=== PATIENT | male | born 1970 | race Caucasian/White ===

== ENCOUNTER 2017-12-28 14:03 | Observation (INO) ==
--- NOTE | 2017-12-28 14:41 | ED ---
HPI General Chief complaint: Respiratory Symptoms Stated complaint: SOB [id number] Time Seen by Provider: 12/28/17 14:25 Source: patient and RN notes reviewed Mode of arrival: ambulatory Limitations: no limitations History of Present Illness HPI narrative: 47-year-old male presents to the emergency department for evaluation of shortness of breath, worse with lying down exertion that is been ongoing for 2 weeks. He also reports a dry cough. He denies any fevers or chills. No congestion. No abdominal pain. Nausea, vomiting, diarrhea. He states he has chronic chest discomfort since previous RI in January, but has no chest pain at this time. He reports history of cardiac stent, hypertension, hyperlipidemia. 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 Moderate severity. Patient denies any recent surgery or travel. No hemoptysis. No leg edema. No history of DVT or PE. He is not on chemotherapy or has cancer. Onset (ago): week(s) (2) Radiation: non-radiation Severity: moderate Relieving factors: none Exacerbating factors: other (Exertion, laying flat) Associated symptoms: Reports cough and shortness of breath; Denies confusion, chest pain, diaphoresis, fever/chills, headaches, loss of appetite, nausea/ vomiting, rash, seizure, syncope and weakness Treatments prior to arrival: Reports none Related Data Home Medications Medication Instructions Recorded Confirmed atorvastatin 20 mg PO DAILY 12/28/17 12/28/17 clonidine HCl 0.1 mg PO BID 12/28/17 12/28/17 clopidogrel 75 mg PO DAILY 12/28/17 12/28/17 lisinopril 5 mg PO DAILY 12/28/17 12/28/17 nitroglycerin 0.4 mg SUBLINGUAL DIRECTED PRN 12/28/17 12/28/17 Allergies Allergy/AdvReac Type Severity Reaction Status Date / Time No Known Allergies Allergy Verified 12/28/17 14:14 Review of Systems ROS: all other systems reviewed are negative [facility] Medical History Medical History High cholesterol (Acute) History of kidney stones (Acute) Hypertension (Acute) Ischemic cardiomyopathy (Acute) Myocardial infarct (Acute) Psoriatic arthritis (Acute) Surgical History Surgical History Stented coronary artery (Acute) Family History Family History Other No pertinent family history Social History Social History Substance History: No History of Abuse Second Hand Smoke Exposure: Yes Smoking Status: Heavy tobacco smoker Tobacco Type: Cigarettes How Often Do You Have a Drink Containing Alcohol: Monthly or less Recent Travel in [facility] within the Last 8 Weeks: No Recent Out of Country Travel within the Last 8 Weeks: No Immunization History Tetanus Immunization: Unsure Exam Narrative Exam Narrative: GENERAL: Well-nourished, well-developed male patient, afebrile. SKIN: Focused skin assessment warm/dry. HEAD: Normocephalic. Atraumatic. EYES: No scleral icterus. No injection or drainage. NECK: Supple, trachea midline. No JVD or lymphadenopathy. CARDIOVASCULAR: Regular rate and rhythm without murmurs, gallops, or rubs. RESPIRATORY: Breath sounds equal bilaterally. No accessory muscle use. Lung sounds are clear to auscultation. GASTROINTESTINAL: Abdomen soft, non-tender, nondistended. MUSCULOSKELETAL: No cyanosis, or edema. BACK: Nontender without obvious deformity. No CVA tenderness. Course Initial Documented Vital Signs Temperature 98.9 F 12/28/17 14:10 Pulse Rate 87 12/28/17 14:10 Respiratory Rate 18 12/28/17 14:10 Blood Pressure 178/113 H 12/28/17 14:10 Pulse Oximetry 98 12/28/17 14:10 Last Documented Vital Signs Temperature 98.5 F 12/29/17 04:00 Pulse Rate 74 12/29/17 04:00 Respiratory Rate 18 12/29/17 04:00 Blood Pressure 135/74 12/29/17 04:00 Pulse Oximetry 95 12/29/17 04:00 Clinical Decision Support PERC Rule Age greater than or equal to 50: No HR greather than or equal to 100: No Sa02 on room air is less than 95%: No Unilateral Leg Swelling: No Hemoptysis: No Recent Surgery or Trauma: No Prior PE or DVT: No Hormone Use: No Medical Decision Making SUSI Attestation SUSI supervised visit: Yes Attestation: I, Dr. Guevara, have reviewed the advance practice practitioner's documentation and am in agreement, met with the patient face to face, made the diagnosis, and the medical decision making was done by me. *My assessment and Findings: [-] Patient is 47-year-old male with history of CHF, presented to emergency room for significant dyspnea at rest. He was diagnosed with CHF exacerbation, I agree with admission on observation for further evaluation and treatment. MDM Narrative Medical decision making narrative: 47-year-old male presents to the emergency department for evaluation of shortness of breath on exertion and lying flat for 2 weeks. IV access obtained. CBC, CMP, BNP, CK, troponin, PTT, PT/INR, chest x -ray ordered and pending. EKG was read by my attending physician, Dr. Harris , SR HR 85, inverted T waves in lead I, aVL, V5, V6. CBC shows no acute abnormality. CMP shows elevated BUN 19. BNP is 1487. CK is 61. Troponin is 0.04. PTT is 25.8. PT/INR is 10.7/1.1. Chest x-ray shows cardiomegaly with mild interstitial prominence, congestive failure would be consideration. I discussed the patient and findings with my attending physician, Dr. Chakraborty. He recommends observation admission. Patient is given Lasix 40 mg IV. Medical Screen Exam Complete: Yes Emergency Medical Condition: Yes Differential Diagnosis Differential Diagnosis: ACS versus CHF versus pneumonia versus COPD versus electrolyte abnormality versus dehydration versus anemia Medical Records Medical records reviewed: Yes I reviewed the patient's medical records. Lab Data Result diagrams: 12/28/17 14:45 12/28/17 14:45 Lab Results 12/28/17 12/28/17 12/28/17 Range/Units 14:45 14:45 14:45 CBC w Diff Auto diff final WBC 11.0 (4.0-11.0) th/mm3 RBC 4.69 (4.50-5.90) mil/mm3 Hgb 14.1 (13.0-17.0) gm/dL Hct 42.9 (39.0-51.0) % MCV 91.5 (80.0-100.0) fL MCH 30.0 (27.0-34.0) pg MCHC 32.8 (32.0-36.0) % RDW 15.1 (11.6-17.2) % Plt Count 321 (150-450) th/mm3 MPV 8.4 (7.0-11.0) fL Neut % (Auto) 69.6 (16.0-70.0) % Lymph % (Auto) 18.4 (9.0-44.0) % Heard % (Auto) 6.4 (0.0-8.0) % Eos % (Auto) 4.5 H (0.0-4.0) % Baso % (Auto) 1.1 (0.0-2.0) % Neut # (Auto) 7.7 (1.8-7.7) th/mm3 Lymph # (Auto) 2.0 (1.0-4.8) th/mm3 Heard # (Auto) 0.7 (0.0-0.9) th/mm3 Eos # (Auto) 0.5 H (0.0-0.4) th/mm3 Baso # (Auto) 0.1 (0.0-0.2) th/mm3 WBC Differential . Differential Comment . PT 10.7 (9.8-11.6) sec INR 1.1 Ratio APTT 25.8 (24.3-30.1) sec Sodium 138 (136-145) meq/L Potassium 4.1 (3.5-5.1) meq/L Chloride 105 (98-107) meq/L Carbon Dioxide 24.4 (21.0-32.0) meq/L Anion Gap 9 (5-15) meq/L BUN 19 H (7-18) mg/dL Creatinine 1.20 (0.60-1.30) mg/dL Estimated GFR 64 L (>89) mL/min Random Glucose 93 (74-106) mg/dL Calcium 8.9 (8.5-10.1) mg/dL Magnesium 1.9 (1.5-2.5) mg/dL Total Bilirubin 1.2 H (0.2-1.0) mg/dL AST 22 (15-37) U/L ALT 40 (12-78) U/L Alkaline Phosphatase 123 H (45-117) U/L Total Creatine Kinase 61 (39-308) U/L Troponin I 0.04 (0.02-0.05) ng/mL B-Natriuretic Peptide (0-100) pg/mL Total Protein 7.3 (6.4-8.2) g/dL Albumin 3.5 (3.4-5.0) g/dL 12/28/17 12/28/17 12/29/17 Range/Units 14:45 20:58 02:30 CBC w Diff WBC (4.0-11.0) th/mm3 RBC (4.50-5.90) mil/mm3 Hgb (13.0-17.0) gm/dL Hct (39.0-51.0) % MCV (80.0-100.0) fL MCH (27.0-34.0) pg MCHC (32.0-36.0) % RDW (11.6-17.2) % Plt Count (150-450) th/mm3 MPV (7.0-11.0) fL Neut % (Auto) (16.0-70.0) % Lymph % (Auto) (9.0-44.0) % Heard % (Auto) (0.0-8.0) % Eos % (Auto) (0.0-4.0) % Baso % (Auto) (0.0-2.0) % Neut # (Auto) (1.8-7.7) th/mm3 Lymph # (Auto) (1.0-4.8) th/mm3 Heard # (Auto) (0.0-0.9) th/mm3 Eos # (Auto) (0.0-0.4) th/mm3 Baso # (Auto) (0.0-0.2) th/mm3 WBC Differential Differential Comment PT (9.8-11.6) sec INR Ratio APTT (24.3-30.1) sec Sodium (136-145) meq/L Potassium (3.5-5.1) meq/L Chloride (98-107) meq/L Carbon Dioxide (21.0-32.0) meq/L Anion Gap (5-15) meq/L BUN (7-18) mg/dL Creatinine (0.60-1.30) mg/dL Estimated GFR (>89) mL/min Random Glucose (74-106) mg/dL Calcium (8.5-10.1) mg/dL Magnesium (1.5-2.5) mg/dL Total Bilirubin (0.2-1.0) mg/dL AST (15-37) U/L ALT (12-78) U/L Alkaline Phosphatase (45-117) U/L Total Creatine Kinase 52 47 (39-308) U/L Troponin I 0.04 0.04 (0.02-0.05) ng/mL B-Natriuretic Peptide 1487 H (0-100) pg/mL Total Protein (6.4-8.2) g/dL Albumin (3.4-5.0) g/dL Imaging Data Radiologist's impression: Chest X-Ray 12/28/17 14:30 CONCLUSION: Cardiomegaly with mild interstitial prominence. Congestive failure would be consideration. Discharge Plan Discharge Disposition Patient Disposition: 30 Still Patient Discharge Details Diagnosis: Acute exacerbation of congestive heart failure Physicians Team ED Provider: Antolin Chakraborty ED Midlevel Provider: Carina Castro Primary Care Provider: Primary Care Malgorzata Urias Attending Provider: Rashmi Diaz Status ED Status: Left Department Discharge Information Discharge Date/Time: 12/28/17 17:51
[2017-12-28 15:07] LABS: Baso # (Auto) 0.1 th/mm3 (0.0-0.2); Baso % (Auto) 1.1 % (0.0-2.0); Eos # (Auto) 0.5 th/mm3 (0.0-0.4); Eos % (Auto) 4.5 % (0.0-4.0); Hematocrit 42.9 % (39.0-51.0); Hemoglobin 14.1 gm/dL (13.0-17.0); Lymph % (Auto) 18.4 % (9.0-44.0); Mean Corpuscular HGB Conc 32.8 % (32.0-36.0); Mean Corpuscular Volume 91.5 fL (80.0-100.0); Mean Platelet Volume 8.4 fL (7.0-11.0); Mono # (Auto) 0.7 th/mm3 (0.0-0.9); Mono % (Auto) 6.4 % (0.0-8.0); Neut # (Auto) 7.7 th/mm3 (1.8-7.7); Neut % (Auto) 69.6 % (16.0-70.0); Platelet Count 321 th/mm3 (150-450); Red Blood Count 4.69 mil/mm3 (4.50-5.90); Red Cell Distribution Width 15.1 % (11.6-17.2)
[2017-12-28 15:08] LABS: Chloride 105 meq/L (98-107); Potassium 4.1 meq/L (3.5-5.1); Sodium 138 meq/L (136-145)
--- NOTE | 2017-12-28 15:09 | XR ---
EXAM DATE: 12/28/2017 3:04 PM EDT AGE/SEX: 47 years / Male INDICATIONS: . Shortness of breath. CLINICAL DATA: This is the patient's initial encounter. Patient reports that signs and symptoms have been present for 3 weeks and indicates a pain score of 0/10. MEDICAL/SURGICAL HISTORY: Hypertension. . Cardiac stent. COMPAR[place]: [facility] [place], 02/26/[place]. . FINDINGS: PA and lateral views of the chest demonstrate the lungs to be symmetrically aerated without evidence of mass, infiltrate or effusion. The heart is enlarged with mild interstitial prominence.. Osseous st ructures are intact. CONCLUSION: Cardiomegaly with mild interstitial prominence. Congestive failure would be consideration. Electronically signed by: Kash Wharton MD 12/28/2017 3:07 PM EDT
[2017-12-28 15:11] LABS: Calcium 8.9 mg/dL (8.5-10.1)
[2017-12-28 15:12] LABS: Albumin 3.5 g/dL (3.4-5.0); Anion Gap 9 meq/L (5-15); Blood Urea Nitrogen 19 mg/dL (7-18); Carbon Dioxide 24.4 meq/L (21.0-32.0); Glucose,Random 93 mg/dL (74-106); Magnesium 1.9 mg/dL (1.5-2.5)
[2017-12-28 15:15] LABS: Alanine Aminotransferase 40 U/L (12-78); Aspartate Aminotransferase 22 U/L (15-37); Glomerular Filtration Rate 64 mL/min (>89)
[2017-12-28 15:16] LABS: Total Protein 7.3 g/dL (6.4-8.2)
[2017-12-28 15:17] LABS: Alkaline Phosphatase 123 U/L (45-117)
[2017-12-28 15:20] LABS: Troponin I 0.04 ng/mL (0.02-0.05)
[2017-12-28 15:23] LABS: Activated Partial Thrombo Time 25.8 sec (24.3-30.1); INR 1.1 Ratio; Prothrombin Time 10.7 sec (9.8-11.6)
[2017-12-28 15:29] LABS: Creatine Kinase 61 U/L (39-308)
--- NOTE | 2017-12-28 17:00 | P.HP ---
History of Present Illness Primary Care Physician: No Primary Care Physician Chief Complaint: Shortness of breath History of Present Illness: 47-year-old male with known history of myocardial infarction, severe ischemic cardiomyopathy with ejection fraction 25-30%, severe coronary artery disease with history of emergent angioplasty and stenting, who presented to hospital because of progressive shortness of breath, dyspnea on exertion. Patient states that he was in normal state of health up until about 2 weeks ago when he started noticing that he was getting winded more often. He cannot walk as far as he could or work as long as he usually does without has to take a rest. He got to the point where he can only work for proxy 1 hour and then he would have to sit down and take a rest. Patient states that he does drink fluids on a regular basis. He is not on any diuretics. He does not know if he is gaining any weight, he does not weigh himself on a regular basis. He actually denies any chest pain, nausea, vomiting, diaphoresis. Patient came to emergency department and had workup performed and chest x-ray does show cardiomegaly with mild interstitial prominence, congestive failure would be a consideration. Patient did have elevated BNP. Patient does have crackles on examination, patient denies any lower extremity edema, denies any orthopnea. Denies any paroxysmal nocturnal dyspnea. - Diagnosis (1) Acute exacerbation of congestive heart failure (2) Dyspnea on exertion Review of Systems All other systems reviewed negative except as stated in HPI Respiratory: Reports shortness of breath with activity PMFSH - History History Provided By: Patient - Medical History Medical History: Medical History (Last Updated 12/28/17 @ 16:54 by SCOTT Corral) High cholesterol History of kidney stones Hypertension Ischemic cardiomyopathy Myocardial infarct Psoriatic arthritis - Surgical History Surgical History: Surgical History (Last Updated 12/28/17 @ 14:26 by Deidre Cruz RN) Stented coronary artery - Family History Family History: Family History (Last Updated 12/28/17 @ 16:55 by SCOTT Corral) Other No pertinent family history - Tobacco History Second Hand Smoke Exposure: No Tobacco Use In Past 30 Days: No Smoking Status: Current every day smoker Tobacco Type: Cigarettes - Alcohol History How Often Do You Have a Drink Containing Alcohol: Monthly or less - Substance Use History Substance History: No History of Abuse - Immunization History Tetanus Immunization: Unsure Medications and Allergies Active Medications: Active Medications Atorvastatin Calcium (Lipitor) 80 mg PO HS MAURI Carvedilol (Coreg) 3.125 mg PO BID [facility] Clonidine HCl (Clonidine (Nicu) 20 Mcg/Ml Liq) 100 mcg PO BID [facility]URI Clopidogrel Bisulfate (Plavix) 75 mg PO DAILY [facility]URI Furosemide (Lasix Inj) 40 mg IV.PUSH BID@0900,1800 MAURI Heparin Sodium (Porcine) (Heparin Inj) 5,000 units SQ Q12H [facility]URI Lisinopril (Prinivil) 10 mg PO DAILY MAURI Nitroglycerin (Nitrostat Sl) 0.4 mg SL Q5M PRN PRN Reason: CHEST PAIN Potassium Chloride (K-Dur) 20 meq PO BID MAURI Sodium Chloride (Ns Flush) 2 ml IV.FLUSH BID MAURI Sodium Chloride (Ns Flush) 2 ml IV.FLUSH UNSCH PRN PRN Reason: FLUSH AFTER USING IV ACCESS Allergies Allergy/AdvReac Type Severity Reaction Status Date / Time No Known Allergies Allergy Verified 12/28/17 14:14 Home Medications Medication Instructions Recorded Confirmed Type atorvastatin 20 mg PO DAILY 12/28/17 12/28/17 History clonidine HCl 0.1 mg PO BID 12/28/17 12/28/17 History clopidogrel 75 mg PO DAILY 12/28/17 12/28/17 History lisinopril 5 mg PO DAILY 12/28/17 12/28/17 History nitroglycerin 0.4 mg SUBLINGUAL DIRECTED PRN 12/28/17 12/28/17 History Exam Vital signs: Vital Signs 12/28/17 14:10 12/28/17 14:30 12/28/17 16:00 Temperature 98.9 F Pulse Rate 87 84 Respiratory Rate 18 20 Blood Pressure 178/113 H 179/109 H Pulse Oximetry 98 97 Intake & Output 12/27/17 12/28/17 12/28/17 18:59 06:59 18:59 Weight 82 kg Narrative: GENERAL: Well-developed, well-nourished, in no acute distress. alert and orientated HEENT: Head is normocephalic without any lesions or masses noted. Facial features are symmetric. Eyes: Pupils equal round reactive to light. Extraocular muscles are intact. Conjunctivae were clear. Oropharyngeal: Pharynx without any erythema edema. Tongue is midline without deviation. Buccal mucosa is moist without any masses or lesions NECK: Supple without any masses. Trachea midline no deviation. No JVD, no bruits are appreciated CARDIAC: Regular rhythm, regular rate. S1/S2 are heard. No murmurs gallops or rubs. LUNGS: Patient with crackles noted in bilateral bases. No wheeze, rhonchi. No use of accessory muscles on inspiration or expiration. ABDOMEN: Soft, nontender. Nondistended. Bowel sounds heard in all 4 quadrants. No organomegaly or masses. Negative rebound, negative guarding EXTREMITIES: No edema, pulses are equal bilaterally. No cyanosis or clubbing NEUROLOGY: Mood and affect appear appropriate. Cranial nerves II through XII grossly intact. Muscle strength 5/5 in upper and lower extremities bilaterally. Deep tendon reflexes are 2+ in upper and lower extremities bilaterally. Results - Labs CBC & Chem 7: 12/28/17 14:45 12/28/17 14:45 Labs: Laboratory Results - last 24 hr 12/28/17 12/28/17 12/28/17 14:45 14:45 14:45 CBC w Diff Auto diff final WBC 11.0 RBC 4.69 Hgb 14.1 Hct 42.9 MCV 91.5 MCH 30.0 MCHC 32.8 RDW 15.1 Plt Count 321 MPV 8.4 Neut % (Auto) 69.6 Lymph % (Auto) 18.4 Bowie % (Auto) 6.4 Eos % (Auto) 4.5 H Baso % (Auto) 1.1 Neut # (Auto) 7.7 Lymph # (Auto) 2.0 Bowie # (Auto) 0.7 Eos # (Auto) 0.5 H Baso # (Auto) 0.1 WBC Differential . Differential Comment . PT 10.7 INR 1.1 APTT 25.8 Sodium 138 Potassium 4.1 Chloride 105 Carbon Dioxide 24.4 Anion Gap 9 BUN 19 H Creatinine 1.20 Estimated GFR 64 L Random Glucose 93 Calcium 8.9 Magnesium 1.9 Total Bilirubin 1.2 H AST 22 ALT 40 Alkaline Phosphatase 123 H Total Creatine Kinase 61 Troponin I 0.04 B-Natriuretic Peptide Total Protein 7.3 Albumin 3.5 12/28/17 14:45 CBC w Diff WBC RBC Hgb Hct MCV MCH MCHC RDW Plt Count MPV Neut % (Auto) Lymph % (Auto) Bowie % (Auto) Eos % (Auto) Baso % (Auto) Neut # (Auto) Lymph # (Auto) Bowie # (Auto) Eos # (Auto) Baso # (Auto) WBC Differential Differential Comment PT INR APTT Sodium Potassium Chloride Carbon Dioxide Anion Gap BUN Creatinine Estimated GFR Random Glucose Calcium Magnesium Total Bilirubin AST ALT Alkaline Phosphatase Total Creatine Kinase Troponin I B-Natriuretic Peptide 1487 H Total Protein Albumin - Imaging Impressions Chest X-Ray 12/28/17 14:30 CONCLUSION: Cardiomegaly with mild interstitial prominence. Congestive failure would be consideration. Caprini VTE Risk Assessment Caprini VTE Risk Assessment: Moderate/High Risk (score >= 2) Caprini Risk Assessment Model: Point Value = 1 Point Value = 2 Point Value = 3 Point Value = 5 Age 41-60 Minor surgery BMI > 25 kg/m2 Swollen legs Varicose veins or History of unexplained or recurrent spontaneous Oral contraceptives or hormone replacement Sepsis (< 1 month) Serious lung disease, including pneumonia (< 1 month) Abnormal pulmonary function Acute myocardial infarction Congestive heart failure (< 1 month) History of inflammatory bowel disease Medical patient at bed rest Age 61-74 Arthroscopic surgery Major open surgery (> 45 min) Laparoscopic surgery (> 45 min) Malignancy Confined to bed (> 72 hours) Immobilizing plaster cast Central venous access Age >= 75 History of VTE Family history of VTE Factor V Leiden Prothrombin [id number] Lupus anticoagulant Anticardiolipin antibodies Elevated serum homocysteine Heparin-induced thrombocytopenia Other congenital or acquired thrombophilia Stroke (< 1 month) Elective arthroplasty Hip, pelvis, or leg fracture Acute spinal cord injury (< 1 month) Prophylaxis Regimen: Total Risk Factor Score Risk Level Prophylaxis Regimen 0-1 Low Early ambulation 2 Moderate Order ONE of the following: *Sequential Compression Device (SCD) *Heparin 5000 units SQ BID 3-4 Higher Order ONE of the following medications: *Heparin 5000 units SQ TID *Enoxaparin/Lovenox 40 mg SQ daily (WT < 150 kg, CrCl > 30 mL/min) *Enoxaparin/Lovenox 30 mg SQ daily (WT < 150 kg, CrCl > 10-29 mL/min) *Enoxaparin/Lovenox 30 mg SQ BID (WT < 150 kg, CrCl > 30 mL/min) AND/OR *Sequential Compression Device (SCD) 5 or more Highest Order ONE of the following medications: *Heparin 5000 units SQ TID (Preferred with Epidurals) *Enoxaparin/Lovenox 40 mg SQ daily (WT < 150 kg, CrCl > 30 mL/min) *Enoxaparin/Lovenox 30 mg SQ daily (WT < 150 kg, CrCl > 10-29 mL/min) *Enoxaparin/Lovenox 30 mg SQ BID (WT < 150 kg, CrCl > 30 mL/min) AND *Sequential Compression Device (SCD) Assessment and Plan - Assessment (1) Acute exacerbation of congestive heart failure Code(s): I50.9 - Heart failure, unspecified Status: Acute (2) Dyspnea on exertion Code(s): R06.09 - Other forms of dyspnea Status: Acute - Plan Acute systolic congestive heart failure -Chest x-ray does indicate interstitial findings indicating congestive heart failure, elevated BNP -We will start Lasix 40 mg IV twice daily with potassium 20 mEq twice daily -We will add beta-yaz -Continue lisinopril -Continue to trend cardiac enzymes to rule out any acute coronary event -Obtain echocardiogram Severe ischemic cardiomyopathy, hypertension, hyper lipidemia, coronary artery disease -Home medications will be continued DVT prevention -Subcutaneous heparin Discussed Condition With: Dr Diaz, ER physician, nursing staff, patient (1) Acute exacerbation of congestive heart failure Qualifiers: Heart failure type: unspecified Qualified Code(s): I50.9 - Heart failure, unspecified
[2017-12-28] MEDS: Heparin - SQ 10,000 UNITS/ML Vial SQ SCH (21:09)
[2017-12-28 21:23] LABS: Troponin I 0.04 ng/mL (0.02-0.05)
[2017-12-29 02:58] LABS: Troponin I 0.04 ng/mL (0.02-0.05)
--- NOTE | 2017-12-29 08:25 | P.PNIM ---
Subjective Interval history: Follow-up CHF exacerbation. Patient seen and examined, sitting up in bed comfortably no apparent distress. Does state he had one bout of shortness of breath with ambulation today he has been up since then and he denies any further shortness of breath. He denies any chest pain. Has been diuresing well. Awaiting echocardiogram today. Anticipate discharge later this afternoon once echocardiogram report is back. Vital signs stable. Afebrile. Physical Exam Vital signs: Vital Signs 12/28/17 14:10 12/28/17 14:30 12/28/17 16:00 Temperature 98.9 F Pulse Rate 87 84 Respiratory Rate 18 20 Blood Pressure 178/113 H 179/109 H Pulse Oximetry 98 97 12/28/17 17:51 12/28/17 20:00 12/29/17 00:00 Temperature 97.8 F 96.5 F L Pulse Rate 78 76 71 Respiratory Rate 18 18 Blood Pressure 147/75 H 150/95 H 131/63 Pulse Oximetry 97 95 96 12/29/17 04:00 Temperature 98.5 F Pulse Rate 74 Respiratory Rate 18 Blood Pressure 135/74 Pulse Oximetry 95 Intake & Output 12/28/17 12/29/17 12/29/17 18:59 06:59 18:59 Intake Total 120 / 120 100 / 100 Output Total 1050 / 1050 600 / 600 Balance -930 / -930 -500 / -500 Weight 82 kg 81.5 kg Intake: Oral 120 / 120 100 / 100 Output: Urine 1050 / 1050 600 / 600 Narrative: GENERAL: Well-developed, well-nourished, in no acute distress. alert and orientated HEENT: Head is normocephalic without any lesions or masses noted. Facial features are symmetric. Eyes: Pupils equal round reactive to light. Extraocular muscles are intact. Conjunctivae were clear. Oropharyngeal: Pharynx without any erythema edema. Tongue is midline without deviation. Buccal mucosa is moist without any masses or lesions NECK: Supple without any masses. Trachea midline no deviation. No JVD, no bruits are appreciated CARDIAC: Regular rhythm, regular rate. S1/S2 are heard. No murmurs gallops or rubs. LUNGS: Patient with crackles noted in bilateral bases. No wheeze, rhonchi. No use of accessory muscles on inspiration or expiration. ABDOMEN: Soft, nontender. Nondistended. Bowel sounds heard in all 4 quadrants. No organomegaly or masses. Negative rebound, negative guarding EXTREMITIES: No edema, pulses are equal bilaterally. No cyanosis or clubbing NEUROLOGY: Mood and affect appear appropriate. Cranial nerves II through XII grossly intact. Muscle strength 5/5 in upper and lower extremities bilaterally. Deep tendon reflexes are 2+ in upper and lower extremities bilaterally. Results - Labs CBC & Chem 7: 12/28/17 14:45 12/28/17 14:45 Laboratory Results - last 24 hr 12/28/17 12/28/17 12/28/17 14:45 14:45 14:45 CBC w Diff Auto diff final WBC 11.0 RBC 4.69 Hgb 14.1 Hct 42.9 MCV 91.5 MCH 30.0 MCHC 32.8 RDW 15.1 Plt Count 321 MPV 8.4 Neut % (Auto) 69.6 Lymph % (Auto) 18.4 Powell % (Auto) 6.4 Eos % (Auto) 4.5 H Baso % (Auto) 1.1 Neut # (Auto) 7.7 Lymph # (Auto) 2.0 [place] # (Auto) 0.7 Eos # (Auto) 0.5 H Baso # (Auto) 0.1 WBC Differential . Differential Comment . PT 10.7 INR 1.1 APTT 25.8 Sodium 138 Potassium 4.1 Chloride 105 Carbon Dioxide 24.4 Anion Gap 9 BUN 19 H Creatinine 1.20 Estimated GFR 64 L Random Glucose 93 Calcium 8.9 Magnesium 1.9 Total Bilirubin 1.2 H AST 22 ALT 40 Alkaline Phosphatase 123 H Total Creatine Kinase 61 Troponin I 0.04 B-Natriuretic Peptide Total Protein 7.3 Albumin 3.5 12/28/17 12/28/17 12/29/17 14:45 20:58 02:30 CBC w Diff WBC RBC Hgb Hct MCV MCH MCHC RDW Plt Count MPV Neut % (Auto) Lymph % (Auto) Powell % (Auto) Eos % (Auto) Baso % (Auto) Neut # (Auto) Lymph # (Auto) Powell # (Auto) Eos # (Auto) Baso # (Auto) WBC Differential Differential Comment PT INR APTT Sodium Potassium Chloride Carbon Dioxide Anion Gap BUN Creatinine Estimated GFR Random Glucose Calcium Magnesium Total Bilirubin AST ALT Alkaline Phosphatase Total Creatine Kinase 52 47 Troponin I 0.04 0.04 B-Natriuretic Peptide 1487 H Total Protein Albumin - Imaging Impressions Chest X-Ray 12/28/17 14:30 CONCLUSION: Cardiomegaly with mild interstitial prominence. Congestive failure would be consideration. Assessment and Plan - Assessment (1) Acute exacerbation of congestive heart failure Code(s): I50.9 - Heart failure, unspecified Status: Acute (2) Dyspnea on exertion Code(s): R06.09 - Other forms of dyspnea Status: Acute - Plan This a 47-year-old male patient with: Acute systolic congestive heart failure -Chest x-ray does indicate interstitial findings indicating congestive heart failure, elevated BNP -Continue Lasix 40 mg IV twice daily with potassium 20 mEq twice daily -Continue beta-yaz -Continue lisinopril -ACS ruled out with cardiac cardiac enzymes. -Obtain echocardiogram, still pending. -Diuresing well, negative fluid balance noted. Severe ischemic cardiomyopathy, hypertension, hyper lipidemia, coronary artery disease -Home medications will be continued DVT prevention -Subcutaneous heparin Discharge Planning: Awaiting ECHO today. Will dc when report available. (1) Acute exacerbation of congestive heart failure Qualifiers: Heart failure type: unspecified Qualified Code(s): I50.9 - Heart failure, unspecified
[2017-12-29] MEDS ORDERED: Lisinopril 10 MG Tablet PO SCH (09:00)
[2017-12-29] MEDS: Heparin - SQ 10,000 UNITS/ML Vial SQ SCH ×2 (09:41→09:50)
--- NOTE | 2017-12-29 16:25 | ECG ---
Date Performed: 12/28/2017 Time Performed: 14:34:59 PTAGE: 47 years EKG: Sinus rhythm POSSIBLE LEFT ATRIAL ENLARGEMENT MARKED LEFT AXIS DEVIATION ANTEROSEPTAL MYOCARDIAL INFARCTION, age indeterminate PREVIOUS TRACING : 02/24/2017 08.40 DOCTOR: Rian Cervantes Interpretating Date/Time 12/29/2017 16:25:16
--- NOTE | 2017-12-29 16:26 | ECG ---
Date Performed: 12/28/2017 Time Performed: 20:48:29 PTAGE: 47 years EKG: Sinus rhythm LEFT ATRIAL ENLARGEMENT MARKED LEFT AXIS DEVIATION ANTERIOR MYOCARDIAL INFARCTION, age indetrminate PREVIOUS TRACING : 12/28/2017 14.40 DOCTOR: Rian Cervantes Interpretating Date/Time 12/29/2017 16:26:17
--- NOTE | 2017-12-29 16:26 | ECG ---
Date Performed: 12/28/2017 Time Performed: 14:40:14 PTAGE: 47 years EKG: Sinus rhythm LEFT ATRIAL ENLARGEMENT MARKED LEFT AXIS DEVIATION ANTEROSEPTAL MYOCARDIAL INFARCTION, age indetermi singh MODERATE T-WAVE ABNORMALITY, CONSIDER LATERAL ISCHEMIA ABNORMAL ECG INTERPRETATION BASED ON A DE FAULT AGE OF 40 YEARS PREVIOUS TRACING :12/28/2017 @14.34.59 DOCTOR: Rian Cervantes Interpretating Date/Time 12/29/2017 16:26:02
--- NOTE | 2017-12-29 16:28 | ECG ---
Date Performed: 12/29/2017 Time Performed: 02:43:25 PTAGE: 47 years EKG: Sinus rhythm LEFT ATRIAL ENLARGEMENT ANTEROSEPTAL MYOCARDIAL INFARCTION, age indeterminate PREVIOUS TRACING : 12/28/2017 20.48 DOCTOR: Rian Cervantes Interpretating Date/Time 12/29/2017 16:26:46
--- NOTE | 2017-12-29 18:30 | ECHRPT ---
Indication: Cardiomyopathy CONCLUSIONS The left ventricular systolic function is severely reduced with an estimated ejection fraction in th e range of 25-30%. Mild concentric left ventricular hypertrophy. Apical akinesis. Trace mitral valve regurgitation. BP: / HR: Rhythm: MEASUREMENTS (Male / Female) Normal Values Technical Quality:Fair 2D ECHO LV Diastolic Diameter PLAX 5.2 cm 4.2 - 5.9 / 3.9 - 5.3 cm LV Systolic Diameter PLAX 4.9 cm IVS Diastolic Thickness 1.3 cm 0.6 - 1.0 / 0.6 - 0.9 cm LVPW Diastolic Thickness 1.2 cm 0.6 - 1.0 / 0.6 - 0.9 cm LV Relative Wall Thickness 0.5 RV Internal Dim ED PLAX 3.7 cm LVOT Diameter 2.3 cm Aortic Root Diameter 3.0 cm LA Systolic Diameter LX 3.8 cm 3.0 - 4.0 / 2.7 - 3.8 cm DOPPLER AV Peak Velocity 122.0 cm/s AV Peak Gradient 6.0 mmHg LVOT Peak Velocity 107.0 cm/s LVOT Peak Gradient 4.6 mmHg AV Area Cont Eq pk 3.6 cm Mitral E Point Velocity 72.1 cm/s Mitral A Point Velocity 67.6 cm/s Mitral E to A Ratio 1.1 LV E' Lateral Velocity 5.9 cm/s Mitral E to LV E' Lateral Ratio 12.3 LV E' Septal Velocity 4.8 cm/s Mitral E to LV E' Septal Ratio 15.1 PV Peak Velocity 93.7 cm/s PV Peak Gradient 3.5 mmHg FINDINGS LEFT VENTRICLE Normal left ventricular size. Mild concentric left ventricular hypertrophy. The left ventricular systolic function is severely reduced with an estimated ejection fraction in th e range of 25-30%. There is global left ventricular dysfunction. Apical akinesis RIGHT VENTRICLE Grossly normal LEFT ATRIUM The left atrial size is normal. RIGHT ATRIUM The right atrial size is normal. ATRIAL SEPTUM Normal atrial septal thickness without atrial level shunting by limited color doppler interrogation. AORTA The aortic root and proximal ascending aorta are normal in size on limited imaging. MITRAL VALVE Structurally normal mitral valve. Trace mitral valve regurgitation. No mitral valve stenosis. AORTIC VALVE Trileaflet aortic valve. No aortic valve stenosis or regurgitation. TRICUSPID VALVE Structurally normal tricuspid valve. No tricuspid valve stenosis or regurgitation. PULMONARY VALVE The pulmonary valve is not well visualized. VESSELS The inferior vena cava is normal in size. PERICARDIUM No pericardial effusion. Vincent G. Lazar DO (Electronically Signed) Final Date:29 December 2017 18:29
== END 2017-12-29 19:41 | disposition home or self-care (01) ==
LOC: PHEDA 14:03 → PHEFT 14:03 → MERGE 16:21 → PH3 17:44
PROVIDERS: ADMIT Family Medicine; ATTEND Family Medicine

== ENCOUNTER 2018-04-18 17:59 | Inpatient (IN) ==
[2018-04-18 18:46] LABS: Baso # (Auto) 0.1 th/mm3 (0.0-0.2); Baso % (Auto) 1.1 % (0.0-2.0); Eos # (Auto) 0.3 th/mm3 (0.0-0.4); Eos % (Auto) 2.7 % (0.0-4.0); Hematocrit 43.6 % (39.0-51.0); Hemoglobin 14.1 gm/dL (13.0-17.0); Lymph # (Auto) 2.4 th/mm3 (1.0-4.8); Lymph % (Auto) 20.2 % (9.0-44.0); Mean Corpuscular HGB Conc 32.3 % (32.0-36.0); Mean Corpuscular Hemoglobin 28.9 pg (27.0-34.0); Mean Corpuscular Volume 89.2 fL (80.0-100.0); Mean Platelet Volume 8.8 fL (7.0-11.0); Mono # (Auto) 0.6 th/mm3 (0.0-0.9); Mono % (Auto) 5.5 % (0.0-8.0); Neut # (Auto) 8.3 th/mm3 (1.8-7.7); Neut % (Auto) 70.5 % (16.0-70.0); Platelet Count 310 th/mm3 (150-450); Red Blood Count 4.89 mil/mm3 (4.50-5.90); Red Cell Distribution Width 15.1 % (11.6-17.2); White Blood Count 11.7 th/mm3 (4.0-11.0)
[2018-04-18 18:53] LABS: Chloride 107 meq/L (98-107); Potassium 3.7 meq/L (3.5-5.1); Sodium 139 meq/L (136-145)
[2018-04-18 18:56] LABS: Anion Gap 9 meq/L (5-15); Blood Urea Nitrogen 14 mg/dL (7-18); Carbon Dioxide 23.5 meq/L (21.0-32.0); Glucose,Random 109 mg/dL (74-106)
[2018-04-18 18:59] LABS: Glomerular Filtration Rate 64 mL/min (>89)
[2018-04-18 19:03] LABS: Creatine Kinase 106 U/L (39-308)
[2018-04-18 19:04] LABS: Troponin I 0.12 ng/mL (0.02-0.05)
--- NOTE | 2018-04-18 19:15 | ED ---
HPI General Chief Complaint: Chest Pain Stated Complaint: chest pain Time Seen by Provider: 04/18/18 18:46 Source: patient Mode of arrival: ambulatory Limitations: no limitations History of Present Illness HPI narrative: 48-year-old male presents to the emergency department complaint of retrosternal chest pain. Patient also complains of shortness of breath nausea and diaphoresis patient has history of previous PA and had cardiac catheterization as recently as January 2017 at which time he had angioplasty and stent placement and EF 20%. Patient states that he does have high blood pressure high cholesterol and continues to smoke cigarettes. Patient currently has no primary care provider. Patient was previously followed by Dr. Harding but has not seen her for at least a year or perhaps longer. Patient was admitted in November 2017 for an episode of congestive heart failure at that time he had an echocardiogram that showed an EF of 20-25%. Patient states symptoms began around 4:30 PM this evening to 324 mg of aspirin. Patient states pain was initially 7/10 in intensity is currently 5/10 in intensity. Denies history of diabetes or family history of premature onset heart disease. Patient denies any orthopnea or PND has had some exertional dyspnea. Patient also reports that he has had a congested cough over the past 2 weeks has had occasional yellow phlegm production but no fevers. MD complaint: Reports chest pain STEMI Alert: No Onset (ago): hour(s) (2) Time: 16:29 Duration: constant Onset: during rest Pain location: Reports substernal Severity: severe Quality: Reports tightness, aching and heaviness Pain radiation: Reports back and neck Relieving factors: nothing Exacerbating factors: exertion Context: Denies recent illness, recent surgery, recent immobilization, recent travel, trauma/injury, new medications and history of DVT/PE Associated symptoms: Reports nausea, diaphoresis, dyspnea and cough; Denies vomiting, sense of impending doom, syncope, palpitations, fever and leg swelling Treatments prior to arrival chest pain: Reports aspirin (324 mg) Related Data Home Medications Medication Instructions Recorded Confirmed atorvastatin 20 mg PO DAILY 12/28/17 04/18/18 clonidine HCl 0.1 mg PO BID 12/28/17 04/18/18 clopidogrel 75 mg PO DAILY 12/28/17 04/18/18 nitroglycerin 0.4 mg SUBLINGUAL DIRECTED PRN 12/28/17 04/18/18 furosemide [Lasix] mg PO DAILY 04/18/18 potassium chloride meq PO DAILY 04/18/18 Allergies Allergy/AdvReac Type Severity Reaction Status Date / Time No Known Allergies Allergy Verified 04/18/18 18:13 Review of Systems ROS: all other systems reviewed are negative [facility] Medical History Medical History High cholesterol (Acute) History of kidney stones (Acute) Hypertension (Acute) Ischemic cardiomyopathy (Acute) Myocardial infarct (Acute) Psoriatic arthritis (Acute) Surgical History Surgical History Stented coronary artery (Acute) Family History Family History Other No pertinent family history Social History Social History Substance History: No History of Abuse Second Hand Smoke Exposure: Yes Smoking Status: Current every day smoker Tobacco Type: Cigarettes How Often Do You Have a Drink Containing Alcohol: 2 to 4 times a month Recent Travel in [facility] within the Last 8 Weeks: No Recent Out of Country Travel within the Last 8 Weeks: No Immunization History Tetanus Immunization: Unsure Exam Narrative Exam Narrative: GENERAL: Well-nourished, well-developed patient. Resting supine in no acute distress no respiratory distress; GCS 15 SKIN: Focused skin assessment warm/dry. HEAD: Normocephalic. EYES: No scleral icterus. No injection or drainage. NECK: Supple, trachea midline. No JVD or lymphadenopathy. CARDIOVASCULAR: Increased regular rate and rhythm without murmurs, gallops, or rubs. RESPIRATORY: Breath sounds equal bilaterally. No accessory muscle use. Clear to auscultation bilaterally GASTROINTESTINAL: Abdomen soft, non-tender, nondistended. MUSCULOSKELETAL: No cyanosis, or edema. Bilateral radial dorsalis pedis pulses 2+ to palpation bilaterally BACK: Nontender without obvious deformity. No CVA tenderness. Course Initial Documented Vital Signs Pulse Rate 100 H 04/18/18 18:00 Pulse Oximetry 98 04/18/18 18:00 Last Documented Vital Signs Temperature 97.7 F 04/19/18 08:00 Pulse Rate 76 04/19/18 09:56 Respiratory Rate 17 04/19/18 08:00 Blood Pressure 143/92 H 04/19/18 08:00 Pulse Oximetry 97 04/19/18 08:00 Critical Care Time Critical Care Time: Yes Total Critical Care Time: 35 Attestation: Aggregate critical care time was 35 minutes. Time to perform other separately billable procedures was not included in the critical care time. My time did not include minutes spent treating any other patients simultaneously or on activities that did not directly contribute to the patient's treatment. The services I provided to this patient were to treat and/or prevent clinically significant deterioration that could result in: Myocardial infarction, arrhythmia, cardiogenic shock, I provided critical care services requiring my management, as noted below: Chart data review, documentation time, medication orders and management, vital sign assessments/reviewing monitor data, ordering and reviewing lab tests, ordering and interpreting/reviewing x-rays and diagnostic studies, care of the patient and discussion of the patient with the admitting physicians. Medical Decision Making MDM Narrative Medical decision making narrative: 48-year-old male with known history of previous PA and STEMI PA 01/2018 underwent cardiac catheterization by Dr. Stover which showed severe three-vessel disease and severe LAD disease and underwent stenting and angioplasty. Patient placed on network designer IV access obtained specimens collected and sent for resulting EKG shows sinus rhythm left atrial enlargement LVH no acute ST segment elevation or injury pattern mild ST segment flattening laterally Patient is already taken aspirin prior to arrival to the emergency department given some nitroglycerin At 7:14 PM troponin I is elevated at 0.12 coagulation studies pending patient will be placed on heparin and will be treated for acute coronary syndrome anticipate non-STEMI and IV nitroglycerin @ 8:19 cp 05/[address] Stoddard will accept for admission to [facility]; discussed with cardiology, Dr Cervantes Patient is aware of plan and is agreeable to admission and transfer to [facility] Medical Screen Exam Complete: Yes Emergency Medical Condition: Yes Differential Diagnosis Differential Diagnosis: Chest pain, atypical chest pain, ACS, PA, CHF, PE, aortic dissection Medical Records Medical records reviewed: Yes I reviewed the patient's medical records. 02/24/17 cardiac catheterization performed by Dr. Stover moderate to severe three -vessel coronary artery disease including total occlusions of the left anterior descending and right coronary arteries; right dominant system; status post emergency angioplasty and stent of the proximal LAD in the infarct-related vessel; severely reduced LV systolic function with estimated ejection fraction of 20%. Lab Data Lab results reviewed: Yes I reviewed the patient's lab results. Result diagrams: 04/19/18 04:18 04/19/18 04:18 Lab Results 04/18/18 04/18/18 04/18/18 Range/Units 18:20 18:20 18:20 CBC w Diff Auto diff final WBC 11.7 H (4.0-11.0) th/mm3 RBC 4.89 (4.50-5.90) mil/mm3 Hgb 14.1 (13.0-17.0) gm/dL Hct 43.6 (39.0-51.0) % MCV 89.2 (80.0-100.0) fL MCH 28.9 (27.0-34.0) pg MCHC 32.3 (32.0-36.0) % RDW 15.1 (11.6-17.2) % Plt Count 310 (150-450) th/mm3 MPV 8.8 (7.0-11.0) fL Neut % (Auto) 70.5 H (16.0-70.0) % Lymph % (Auto) 20.2 (9.0-44.0) % [place] % (Auto) 5.5 (0.0-8.0) % Eos % (Auto) 2.7 (0.0-4.0) % Baso % (Auto) 1.1 (0.0-2.0) % Neut # (Auto) 8.3 H (1.8-7.7) th/mm3 Lymph # (Auto) 2.4 (1.0-4.8) th/mm3 [place] # (Auto) 0.6 (0.0-0.9) th/mm3 Eos # (Auto) 0.3 (0.0-0.4) th/mm3 Baso # (Auto) 0.1 (0.0-0.2) th/mm3 WBC Differential . Differential Comment . PT 10.7 (9.8-11.6) sec INR 1.1 Ratio APTT 26.6 (23.4-31.7) sec Sodium 139 (136-145) meq/L Potassium 3.7 (3.5-5.1) meq/L Chloride 107 (98-107) meq/L Carbon Dioxide 23.5 (21.0-32.0) meq/L Anion Gap 9 (5-15) meq/L BUN 14 (7-18) mg/dL Creatinine 1.20 (0.60-1.30) mg/dL Estimated GFR 64 L (>89) mL/min Random Glucose 109 H (74-106) mg/dL Calcium 9.0 (8.5-10.1) mg/dL Magnesium (1.5-2.5) mg/dL Total Bilirubin (0.2-1.0) mg/dL AST (15-37) U/L ALT (12-78) U/L Alkaline Phosphatase (45-117) U/L Total Creatine Kinase 106 (39-308) U/L CK-MB (CK-2) 3.0 (0.5-3.6) ng/mL Troponin I 0.12 H (0.02-0.05) ng/mL B-Natriuretic Peptide (0-100) pg/mL Total Protein (6.4-8.2) g/dL Albumin (3.4-5.0) g/dL Triglycerides (42-150) mg/dL Cholesterol (120-200) mg/dL LDL Cholesterol, Calc (0-99) mg/dL HDL Cholesterol (40.0-60.0) mg/dL Cholesterol/HDL Ratio Ratio 04/18/18 04/19/18 04/19/18 Range/Units 18:20 00:47 00:47 CBC w Diff WBC (4.0-11.0) th/mm3 RBC (4.50-5.90) mil/mm3 Hgb (13.0-17.0) gm/dL Hct (39.0-51.0) % MCV (80.0-100.0) fL MCH (27.0-34.0) pg MCHC (32.0-36.0) % RDW (11.6-17.2) % Plt Count (150-450) th/mm3 MPV (7.0-11.0) fL Neut % (Auto) (16.0-70.0) % Lymph % (Auto) (9.0-44.0) % [place] % (Auto) (0.0-8.0) % Eos % (Auto) (0.0-4.0) % Baso % (Auto) (0.0-2.0) % Neut # (Auto) (1.8-7.7) th/mm3 Lymph # (Auto) (1.0-4.8) th/mm3 [place] # (Auto) (0.0-0.9) th/mm3 Eos # (Auto) (0.0-0.4) th/mm3 Baso # (Auto) (0.0-0.2) th/mm3 WBC Differential Differential Comment PT (9.8-11.6) sec INR Ratio APTT 39.3 H D (23.4-31.7) sec Sodium (136-145) meq/L Potassium (3.5-5.1) meq/L Chloride (98-107) meq/L Carbon Dioxide (21.0-32.0) meq/L Anion Gap (5-15) meq/L BUN (7-18) mg/dL Creatinine (0.60-1.30) mg/dL Estimated GFR (>89) mL/min Random Glucose (74-106) mg/dL Calcium (8.5-10.1) mg/dL Magnesium (1.5-2.5) mg/dL Total Bilirubin (0.2-1.0) mg/dL AST (15-37) U/L ALT (12-78) U/L Alkaline Phosphatase (45-117) U/L Total Creatine Kinase (39-308) U/L CK-MB (CK-2) (0.5-3.6) ng/mL Troponin I 0.11 H (0.02-0.05) ng/mL B-Natriuretic Peptide 1997 H (0-100) pg/mL Total Protein (6.4-8.2) g/dL Albumin (3.4-5.0) g/dL Triglycerides (42-150) mg/dL Cholesterol (120-200) mg/dL LDL Cholesterol, Calc (0-99) mg/dL HDL Cholesterol (40.0-60.0) mg/dL Cholesterol/HDL Ratio Ratio 04/19/18 04/19/18 04/19/18 Range/Units 04:18 04:18 04:18 CBC w Diff WBC 9.7 (4.0-11.0) th/mm3 RBC 4.32 L (4.50-5.90) mil/mm3 Hgb 12.7 L (13.0-17.0) gm/dL Hct 38.9 L (39.0-51.0) % MCV 90.1 (80.0-100.0) fL MCH 29.4 (27.0-34.0) pg MCHC 32.6 (32.0-36.0) % RDW 15.6 (11.6-17.2) % Plt Count 233 (150-450) th/mm3 MPV 8.4 (7.0-11.0) fL Neut % (Auto) 52.4 (16.0-70.0) % Lymph % (Auto) 34.7 (9.0-44.0) % [place] % (Auto) 6.7 (0.0-8.0) % Eos % (Auto) 5.2 H (0.0-4.0) % Baso % (Auto) 1.0 (0.0-2.0) % Neut # (Auto) 5.1 (1.8-7.7) th/mm3 Lymph # (Auto) 3.4 (1.0-4.8) th/mm3 [place] # (Auto) 0.7 (0.0-0.9) th/mm3 Eos # (Auto) 0.5 H (0.0-0.4) th/mm3 Baso # (Auto) 0.1 (0.0-0.2) th/mm3 WBC Differential . Differential Comment Auto diff final PT (9.8-11.6) sec INR Ratio APTT (23.4-31.7) sec Sodium 143 (136-145) meq/L Potassium 3.0 L (3.5-5.1) meq/L Chloride 108 H (98-107) meq/L Carbon Dioxide 28.9 (21.0-32.0) meq/L Anion Gap 6 (5-15) meq/L BUN 19 H (7-18) mg/dL Creatinine 1.12 (0.60-1.30) mg/dL Estimated GFR 69 L (>89) mL/min Random Glucose 101 (74-106) mg/dL Calcium 7.9 L D (8.5-10.1) mg/dL Magnesium 1.9 (1.5-2.5) mg/dL Total Bilirubin 1.2 H (0.2-1.0) mg/dL AST 17 (15-37) U/L ALT 22 (12-78) U/L Alkaline Phosphatase 86 (45-117) U/L Total Creatine Kinase (39-308) U/L CK-MB (CK-2) (0.5-3.6) ng/mL Troponin I 0.11 H (0.02-0.05) ng/mL B-Natriuretic Peptide (0-100) pg/mL Total Protein 5.9 L (6.4-8.2) g/dL Albumin 3.0 L (3.4-5.0) g/dL Triglycerides 131 (42-150) mg/dL Cholesterol 95 L (120-200) mg/dL LDL Cholesterol, Calc 31 (0-99) mg/dL HDL Cholesterol 38.1 L (40.0-60.0) mg/dL Cholesterol/HDL Ratio 2.49 Ratio Imaging Data Radiologist's impression: Chest X-Ray 04/18/18 18:37 CONCLUSION: Cardiomegaly with minimal interstitial edema pattern. No consolidation or significant effusion. ECG Data EKG Prior to Arrival: No Attestation: I personally reviewed and interpreted this ECG as follows: (EKG normal sinus rhythm rate 96 with atrial enlargement left axis deviation nonspecific T wave changes.) Prior ECG tracings: available for review Discharge Plan Discharge Disposition Patient Disposition: ED Admit(ED Internal Use Only) Discharge Order Discharge Orders: ED Use Only Admit Order (Routine); Ordered 04/18/18 Ordered By: Melissa Rios Discharge Details Diagnosis: ACS (acute coronary syndrome), H/O congestive heart failure Physicians Team ED Provider: Melissa Rios Primary Care Provider: Primary Care Malgorzata Urias Attending Provider: Moe Gomez Other Providers: Rian Cervantes Discharge Interventions Interventions: Vital Signs Last Done: 04/18/18 22:52 ED Discharge Assessment Last Done: 04/18/18 22:52 Status ED Status: Left Department Discharge Information Discharge Date/Time: 04/18/18 22:53
[2018-04-18 19:22] LABS: Activated Partial Thrombo Time 26.6 sec (23.4-31.7); INR 1.1 Ratio; Prothrombin Time 10.7 sec (9.8-11.6)
--- NOTE | 2018-04-18 19:24 | XR ---
EXAM DATE: 04/18/2018 7:00 PM EST AGE/SEX: 48 years / Male INDICATIONS: . Chest pain. CLINICAL DATA: This is the patient's initial encounter. Patient reports that signs and symptoms have been present for 1 week and indicates a pain score of 4/10. MEDICAL/SURGICAL HISTORY: . 2 heart attacks. . Cardiac stents. COMPARISON: [facility], CHEST 2V PA&LAT, 12/28/2017. . FINDINGS: PA and lateral views of the chest demonstrate cardiomegaly. Tortuous aorta. No effusion or pneumothor ax. Minimal interstitial edema pattern. CONCLUSION: Cardiomegaly with minimal interstitial edema pattern. No consolidation or significant effusion. Electronically signed by: Gilberto Herring MD Board Certified Radiologist 04/18/2018 7:22 PM EST
[2018-04-18] MEDS ORDERED: Heparin 10,000 UNITS/10 ML Vial (for IV use) IV.PUSH STA (19:35)
[2018-04-18] MEDS: Heparin Drip 25,000 UNIT/250 ML BAG IV.CONT PRN (20:13)
[2018-04-18] MEDS: Nitroglycerin Drip Premix 50 MG/250 ML BOTTLE IV.CONT PRN (20:17)
[2018-04-18] MEDS ORDERED: Bisacodyl 10 MG Supp RECTAL PRN (20:20)
[2018-04-18] MEDS: Sod Chloride 0.9% Inj 1,000 ML IV.CONT SCH (20:30)
[2018-04-18] MEDS: Metoprolol Tartrate 25 MG Tablet PO SCH (20:50)
[2018-04-18] MEDS: Morphine Sulfate Inj 2 MG/ML Vial IV.PUSH PRN (20:55)
--- NOTE | 2018-04-18 23:36 | P.HPIM ---
History of Present Illness Service: [facility] Primary Care Physician: No Primary Care Physician Chief Complaint: Chest pain History of Present Illness: 48-year-old male with a history of IN x2 with stent placement, severe ischemic cardiomyopathy with an EF of 25-30%, hypertension and hyperlipidemia presented to the ED with complaints of chest pain. He states for the last 3 weeks he has had intermittent pressure-like chest pain that radiates to his left shoulder, 7/10 with associated cough and shortness of breath. He states for the last 2 months he has been off his medications which includes Plavix due to a missed appointment. Upon examination he is currently on a nitroglycerin drip and heparin drip and states he is pain-free at this time. He does complain of shortness of breath, orthopnea and cough. He denies any recent illness no fever or chills. Inpatient Certification Inpatient Certification: I certify that the inpatient services were ordered in accordance with Medicare regulations governing the order. This includes certification that hospital inpatient services are reasonable and necessary and in the case of services not specified as inpatient-only under 42 CFR 419.22(n), that they are appropriately provided as inpatient services in accordance to with the 2-midnight benchmark under 43 CFR 412.3(e) Estimated Total Length of Stay (Days): 2 Plans for Post Hospital Care: Not yet determined Review of Systems Review of Systems: all other systems reviewed are negative [facility] Medical History Medical History High cholesterol (Acute) History of kidney stones (Acute) Hypertension (Acute) Ischemic cardiomyopathy (Acute) Myocardial infarct (Acute) Psoriatic arthritis (Acute) Surgical History Surgical History Stented coronary artery (Acute) Family History Family History Other No pertinent family history Social History Social History Substance History: No History of Abuse Second Hand Smoke Exposure: Yes Smoking Status: Current every day smoker Tobacco Type: Cigarettes How Often Do You Have a Drink Containing Alcohol: 2 to 4 times a month Recent Travel in [facility] within the Last 8 Weeks: No Recent Out of Country Travel within the Last 8 Weeks: No Immunization History Tetanus Immunization: Unsure Medications and Allergies Allergies Allergy/AdvReac Type Severity Reaction Status Date / Time No Known Allergies Allergy Verified 04/18/18 18:13 Home Medications Medication Instructions Recorded Confirmed Type atorvastatin 20 mg PO DAILY 12/28/17 04/18/18 History clonidine HCl 0.1 mg PO BID 12/28/17 04/18/18 History clopidogrel 75 mg PO DAILY 12/28/17 04/18/18 History nitroglycerin 0.4 mg SUBLINGUAL DIRECTED PRN 12/28/17 04/18/18 History furosemide [Lasix] mg PO DAILY 04/18/18 History potassium chloride meq PO DAILY 04/18/18 History Active Medications: Active Medications Acetaminophen (Tylenol) 650 mg PO Q4H PRN PRN Reason: Temp > 100.4 Al Hydroxide/Mg Hydroxide (Milk Of Magnesia Liq) 30 ml PO Q12H PRN PRN Reason: Mild Constipation Aspirin (Ecotrin) 81 mg PO DAILY [facility] Atorvastatin Calcium (Lipitor) 20 mg PO DAILY [facility] Bisacodyl (Dulcolax Supp) 10 mg RECTAL DAILY PRN PRN Reason: SEVERE CONSITIPATION Heparin Sodium/Dextrose (Heparin/D5w 25,000 U/250 Ml) 25,000 unit in 250 mls @ 0 mls/hr IV.CONT TITRATE PRN; Protocol PRN Reason: Per Protocol Last Admin: 04/18/18 20:13 Dose: 1,000 units/hr, 10 mls/hr Nitroglycerin/Dextrose (Nitroglycerin Drip Premix) 50 mg in 250 mls @ 0 mls/hr IV.CONT TITRATE PRN; Protocol PRN Reason: Per Protocol Last Titration: 04/18/18 20:54 Dose: 30 mcg/min, 9 mls/hr Sodium Chloride (Ns Inj) 1,000 mls @ 100 mls/hr IV.CONT .Q10H [facility] Last Admin: 04/18/18 20:30 Dose: 100 mls/hr Lactulose (Lactulose Liq) 30 ml PO DAILY PRN PRN Reason: SEVERE CONSITIPATION Metoprolol Tartrate (Lopressor) 25 mg PO BID [facility] Last Admin: 04/18/18 20:50 Dose: 25 mg Morphine Sulfate (Morphine Inj) 2 mg IV.PUSH Q4H PRN PRN Reason: PAIN SCALE 6 TO 10 Last Admin: 04/18/18 20:55 Dose: 2 mg Ondansetron HCl (Zofran Inj) 4 mg IV.PUSH Q6H PRN PRN Reason: NAUSEA OR VOMITING Senna/Docusate Sodium (Kaity-Colace) 1 tab PO BID [facility] Sennosides (Senokot) 17.2 mg PO Q12H PRN PRN Reason: Moderate Constipation Sodium Chloride (Ns Flush) 2 ml IV.FLUSH BID [facility] Sodium Chloride (Ns Flush) 2 ml IV.FLUSH PRN PRN PRN Reason: FLUSH AFTER USING IV ACCESS Physical Exam Vital signs: Vital Signs 04/18/18 18:00 04/18/18 18:15 04/18/18 18:24 Temperature 98.5 F Pulse Rate 100 H 100 H 96 H Respiratory Rate 20 20 Blood Pressure 192/115 H 179/113 H Pulse Oximetry 98 98 98 04/18/18 19:08 04/18/18 19:15 04/18/18 19:20 Temperature Pulse Rate 102 H 90 92 H Respiratory Rate 16 Blood Pressure 169/113 H 163/104 H 166/84 H Pulse Oximetry 99 04/18/18 19:25 04/18/18 19:30 04/18/18 20:10 Temperature Pulse Rate 89 90 89 Respiratory Rate Blood Pressure 157/94 H 161/85 H Pulse Oximetry 04/18/18 20:15 04/18/18 20:20 04/18/18 20:36 Temperature Pulse Rate 86 90 89 Respiratory Rate 16 Blood Pressure 177/118 H 167/109 H 152/103 H Pulse Oximetry 99 04/18/18 20:45 04/18/18 21:00 04/18/18 21:10 Temperature Pulse Rate 87 90 88 Respiratory Rate Blood Pressure 163/112 H 173/98 H 161/93 H Pulse Oximetry 04/18/18 21:40 04/18/18 22:10 04/18/18 22:52 Temperature Pulse Rate 76 79 88 Respiratory Rate 16 16 Blood Pressure 156/98 H 168/92 H 168/92 H Pulse Oximetry 99 99 Intake & Output 04/18/18 04/18/18 04/19/18 06:59 18:59 06:59 Output Total 400 / 400 Balance -400 / -400 Weight 82.6 kg Output: Urine 400 / 400 Other: # Voids 1 Narrative: GENERAL: Well-nourished patient in no acute distress SKIN: Warm and dry. No open lesions or abrasions HEAD: Normocephalic. EYES: No scleral icterus. No injection or drainage. CARDIOVASCULAR: Regular rate and rhythm without murmurs, gallops, or rubs. RESPIRATORY: Diminished breath sounds in bases, no crackles or wheezes noted. GASTROINTESTINAL: Abdomen soft, non-tender, nondistended. Bowel sounds x4 MUSCULOSKELETAL: No cyanosis, or edema. Results Labs CBC & Chem 7: 04/18/18 18:20 04/18/18 18:20 Imaging Impressions Chest X-Ray 04/18/18 18:37 CONCLUSION: Cardiomegaly with minimal interstitial edema pattern. No consolidation or significant effusion. Caprini VTE Risk Assessment Caprini VTE Risk Assessment: Moderate/High Risk (score >= 2) Caprini Risk Assessment Model: Point Value = 1 Point Value = 2 Point Value = 3 Point Value = 5 Age 41-60 Minor surgery BMI > 25 kg/m2 Swollen legs Varicose veins or History of unexplained or recurrent spontaneous Oral contraceptives or hormone replacement Sepsis (< 1 month) Serious lung disease, including pneumonia (< 1 month) Abnormal pulmonary function Acute myocardial infarction Congestive heart failure (< 1 month) History of inflammatory bowel disease Medical patient at bed rest Age 61-74 Arthroscopic surgery Major open surgery (> 45 min) Laparoscopic surgery (> 45 min) Malignancy Confined to bed (> 72 hours) Immobilizing plaster cast Central venous access Age >= 75 History of VTE Family history of VTE Factor V Leiden Prothrombin [id number] Lupus anticoagulant Anticardiolipin antibodies Elevated serum homocysteine Heparin-induced thrombocytopenia Other congenital or acquired thrombophilia Stroke (< 1 month) Elective arthroplasty Hip, pelvis, or leg fracture Acute spinal cord injury (< 1 month) Prophylaxis Regimen: Total Risk Factor Score Risk Level Prophylaxis Regimen 0-1 Low Early ambulation 2 Moderate Order ONE of the following: *Sequential Compression Device (SCD) *Heparin 5000 units SQ BID 3-4 Higher Order ONE of the following medications: *Heparin 5000 units SQ TID *Enoxaparin/Lovenox 40 mg SQ daily (WT < 150 kg, CrCl > 30 mL/min) *Enoxaparin/Lovenox 30 mg SQ daily (WT < 150 kg, CrCl > 10-29 mL/min) *Enoxaparin/Lovenox 30 mg SQ BID (WT < 150 kg, CrCl > 30 mL/min) AND/OR *Sequential Compression Device (SCD) 5 or more Highest Order ONE of the following medications: *Heparin 5000 units SQ TID (Preferred with Epidurals) *Enoxaparin/Lovenox 40 mg SQ daily (WT < 150 kg, CrCl > 30 mL/min) *Enoxaparin/Lovenox 30 mg SQ daily (WT < 150 kg, CrCl > 10-29 mL/min) *Enoxaparin/Lovenox 30 mg SQ BID (WT < 150 kg, CrCl > 30 mL/min) AND *Sequential Compression Device (SCD) Assessment and Plan Plan 48-year-old male with a history of IN x2 with stent placement, severe ischemic cardiomyopathy with an EF of 25-30%, hypertension and hyperlipidemia presented to the ED with complaints of chest pain. NSTEMI with unstable angina possibly related to CHF exacerbation Troponin on admission 0.12, second set 0.11 EKG shows sinus rhythm with no ST elevation -Nitroglycerin drip ordered -Heparin drip ordered -Serial troponin and EKGs -N.p.o. -Consult to cardiology for evaluation; appreciate assistance -Resume home Plavix -Start metoprolol p.o. twice daily -Morphine available for pain CHF exacerbation, acute BNP 1996 Chest x-ray reviewed and shows no cardiomegaly with interstitial edema -IV Lasix 40 mg given in ER, continue 20 mg IV twice daily Hypertension, chronic -Continue to monitor blood pressures, patient may need additional BP meds Hyperlipidemia, chronic -Resume home medications atorvastatin DVT prophylaxis: Heparin Case management consult to assist with discharge and medication Code Status: Full Discussed Condition With: RN and patient
[2018-04-19 05:07] LABS: Baso # (Auto) 0.1 th/mm3 (0.0-0.2); Eos # (Auto) 0.5 th/mm3 (0.0-0.4); Eos % (Auto) 5.2 % (0.0-4.0); Hematocrit 38.9 % (39.0-51.0); Hemoglobin 12.7 gm/dL (13.0-17.0); Lymph # (Auto) 3.4 th/mm3 (1.0-4.8); Lymph % (Auto) 34.7 % (9.0-44.0); Mean Corpuscular HGB Conc 32.6 % (32.0-36.0); Mean Corpuscular Hemoglobin 29.4 pg (27.0-34.0); Mean Corpuscular Volume 90.1 fL (80.0-100.0); Mean Platelet Volume 8.4 fL (7.0-11.0); Mono # (Auto) 0.7 th/mm3 (0.0-0.9); Mono % (Auto) 6.7 % (0.0-8.0); Neut # (Auto) 5.1 th/mm3 (1.8-7.7); Neut % (Auto) 52.4 % (16.0-70.0); Platelet Count 233 th/mm3 (150-450); Red Blood Count 4.32 mil/mm3 (4.50-5.90); Red Cell Distribution Width 15.6 % (11.6-17.2); White Blood Count 9.7 th/mm3 (4.0-11.0)
[2018-04-19 05:32] LABS: Anion Gap 6 meq/L (5-15); Aspartate Aminotransferase 17 U/L (15-37); Blood Urea Nitrogen 19 mg/dL (7-18); Calcium 7.9 mg/dL (8.5-10.1); Carbon Dioxide 28.9 meq/L (21.0-32.0); Chloride 108 meq/L (98-107); Cholesterol 95 mg/dL (120-200); Glomerular Filtration Rate 69 mL/min (>89); Glucose,Random 101 mg/dL (74-106); Sodium 143 meq/L (136-145)
[2018-04-19 05:37] LABS: Alanine Aminotransferase 22 U/L (12-78); Alkaline Phosphatase 86 U/L (45-117); Chol/HDL Ratio 2.49 Ratio; HDL Cholesterol 38.1 mg/dL (40.0-60.0); LDL Cholesterol,Calculated 31 mg/dL (0-99); Total Protein 5.9 g/dL (6.4-8.2); Triglycerides 131 mg/dL (42-150); Troponin I 0.11 ng/mL (0.02-0.05)
--- NOTE | 2018-04-19 08:35 | P.PNIM ---
Subjective Interval history: Follow-up for elevated troponin, chest pain in a patient with a history of CAD, stent placement, cardiomyopathy with ejection fraction 25-30% . Patient is currently resting in bed. Denies any chest pain, shortness of breath, fever or chills. Waiting for cardiology evaluation. Physical Exam Vital signs: Vital Signs 04/18/18 18:00 04/18/18 18:15 04/18/18 18:24 Temperature 98.5 F Pulse Rate 100 H 100 H 96 H Respiratory Rate 20 20 Blood Pressure 192/115 H 179/113 H Pulse Oximetry 98 98 98 04/18/18 19:08 04/18/18 19:15 04/18/18 19:20 Temperature Pulse Rate 102 H 90 92 H Respiratory Rate 16 Blood Pressure 169/113 H 163/104 H 166/84 H Pulse Oximetry 99 04/18/18 19:25 04/18/18 19:30 04/18/18 20:00 Temperature Pulse Rate 89 90 Respiratory Rate Blood Pressure 157/94 H 161/85 H Pulse Oximetry 99 04/18/18 20:10 04/18/18 20:15 04/18/18 20:20 Temperature Pulse Rate 89 86 90 Respiratory Rate 16 Blood Pressure 177/118 H 167/109 H Pulse Oximetry 99 04/18/18 20:36 04/18/18 20:45 04/18/18 21:00 Temperature Pulse Rate 89 87 90 Respiratory Rate Blood Pressure 152/103 H 163/112 H 173/98 H Pulse Oximetry 04/18/18 21:10 04/18/18 21:40 04/18/18 22:10 Temperature Pulse Rate 88 76 79 Respiratory Rate 16 Blood Pressure 161/93 H 156/98 H 168/92 H Pulse Oximetry 99 04/18/18 22:52 04/18/18 23:15 04/19/18 00:00 Temperature 97.5 F L Pulse Rate 88 81 81 Respiratory Rate 16 20 Blood Pressure 168/92 H 144/91 H Pulse Oximetry 99 96 04/19/18 01:00 04/19/18 04:00 Temperature 97.5 F L Pulse Rate 75 81 Respiratory Rate 20 Blood Pressure 144/91 H Pulse Oximetry 96 Intake & Output 04/18/18 04/19/18 04/19/18 18:59 06:59 18:59 Intake Total 240 / 240 Output Total 900 / 900 Balance -660 / -660 Weight 82.6 kg 82.5 kg Intake: Oral 240 / 240 Output: Urine 900 / 900 Other: # Voids 1 Date of Last Bowel Movement 04/17/18 Narrative: GENERAL: Well-nourished, well-developed patient. SKIN: Warm and dry. HEAD: Normocephalic. EYES: No scleral icterus. No injection or drainage. NECK: Supple, trachea midline. No JVD or lymphadenopathy. CARDIOVASCULAR: Regular rate and rhythm without murmurs, gallops, or rubs. RESPIRATORY: Breath sounds equal bilaterally. No accessory muscle use. GASTROINTESTINAL: Abdomen soft, non-tender, nondistended. MUSCULOSKELETAL: No cyanosis, or edema. BACK: Nontender without obvious deformity. No CVA tenderness. Results Labs CBC & Chem 7: 04/19/18 04:18 04/19/18 04:18 Imaging Imaging: Impressions Chest X-Ray 04/18/18 18:37 CONCLUSION: Cardiomegaly with minimal interstitial edema pattern. No consolidation or significant effusion. Assessment and Plan Plan Mr. Miller is a pleasant 48-year-old male with a history of MT x2 with stent placement, severe ischemic cardiomyopathy with ejection fraction 25- 30% who presented to the emergency department on 04/19/2018 due to pressure-like chest pain. His last stent was placed in January 2017. He has been off Plavix due to missed appointments. His troponins are 0.12, 0.11, 0.11. BNP was close to 2000. Non-ST elevation myocardial infarction Ischemic cardiomyopathy with ejection fraction 25-30% CAD with history of PCI/stent placement Systolic heart failure, chronic (Compensated) No acute ST changes. Troponins are mildly elevated. Cardiology consult pending. We will repeat a limited echocardiogram to evaluate ejection fraction. If ejection fraction remains 30% or below, AICD is indicated. Continue aspirin 81 mg daily. Increase atorvastatin to 80 mg nightly Discontinue metoprolol tartrate and start carvedilol 6.25 mg twice daily Start lisinopril 10 mg p.o. daily Start spironolactone 25 mg p.o. daily. Currently on IV Lasix. Consider switching to p.o. torsemide upon discharge. Acute kidney injury Hypokalemia Creatinine 1.2 on admission currently 1.12. Potassium 3.0 today. We will check magnesium level. Replace potassium with p.o. potassium. Repeat BMP in the morning. Tobacco abuse Patient is heavily counseled on the importance of quitting tobacco. Patient verbalized understanding. He is aware of the resources available through the state. Patient is also advised to follow-up with [facility] for primary care needs. Full code. Heparin drip.
[2018-04-19] MEDS: Metoprolol Tartrate 25 MG Tablet PO SCH (08:37)
[2018-04-19] MEDS: Sod Chloride 0.9% Inj 1,000 ML IV.CONT SCH ×2 (08:39→19:47)
[2018-04-19] MEDS: Senna/Docusate Sodium 8.6/50 MG Tablet PO SCH ×3 (08:39→21:48)
[2018-04-19] MEDS: Acetaminophen 325 MG Tablet PO PRN (08:47)
--- NOTE | 2018-04-19 12:00 | ECHRPT ---
Indication: CARDIOMYOPATHY CONCLUSIONS The left ventricular systolic function is severely reduced with an estimated ejection fraction less than 20%. Mild concentric left ventricular hypertrophy. Mid to apical left ventricle anterior, inferior and lateral appear akinetic. There is a left ventricular apical thrombus noted. Doppler parameters are consistent with a pseudonormal left ventricular filling pattern with concomin ant abnormal relaxation and increased filling pressure (grade 2 diastolic dysfunction). The right ventricular systoilc function is moderately decreased. Mild mitral valve regurgitation. Mild aortic valve regurgitation. Eccentric aortic regurgitation jet directed at the mitral valve. There is mild to moderate tricuspid valve regurgitation. There is estimated moderate pulmonary hypertension present (range 50-60 mmHg). BP: / HR: Rhythm: Sinus MEASUREMENTS (Male / Female) Normal Values Technical Quality:Fair 2D ECHO LV Diastolic Diameter PLAX 5.5 cm 4.2 - 5.9 / 3.9 - 5.3 cm LV Systolic Diameter PLAX 4.9 cm IVS Diastolic Thickness 1.3 cm 0.6 - 1.0 / 0.6 - 0.9 cm LVPW Diastolic Thickness 1.3 cm 0.6 - 1.0 / 0.6 - 0.9 cm LV Relative Wall Thickness 0.5 RV Internal Dim ED PLAX 2.7 cm LVOT Diameter 2.4 cm Aortic Root Diameter 3.1 cm LA Systolic Diameter LX 3.6 cm 3.0 - 4.0 / 2.7 - 3.8 cm M-MODE AV Cusp Separation MM 2.2 cm DOPPLER AV Peak Velocity 85.9 cm/s AV Peak Gradient 3.0 mmHg AV Mean Gradient 2.0 mmHg AV Velocity Time Integral 12.3 cm LVOT Peak Velocity 70.7 cm/s LVOT Peak Gradient 2.0 mmHg LVOT Velocity Time Integral 11.4 cm AV Area Cont Eq vti 4.2 cm AV Area Cont Eq pk 3.7 cm Mitral E Point Velocity 83.9 cm/s Mitral A Point Velocity 48.9 cm/s Mitral E to A Ratio 1.7 LV E' Lateral Velocity 5.1 cm/s Mitral E to LV E' Lateral Ratio 16.3 LV E' Septal Velocity 3.4 cm/s Mitral E to LV E' Septal Ratio 25.0 TR Peak Velocity 333.0 cm/s TR Peak Gradient 44.4 mmHg Right Atrial Pressure 10.0 mmHg Pulmonary Artery Systolic Pressu 54.4 mmHg Right Ventricular Systolic Press 54.4 mmHg PV Peak Velocity 56.4 cm/s PV Peak Gradient 1.3 mmHg FINDINGS LEFT VENTRICLE Normal left ventricular size. Mild concentric left ventricular hypertrophy. The left ventricular systolic function is severely reduced with an estimated ejection fraction less than 20%. Akinetic mid-anterior wall motion. Akinetic apical anterior wall. Akinetic apical cap wall motion. Akinetic mid-inferior wall motion. Akinetic apical-inferior wall motion. Doppler parameters are consistent with a pseudonormal left ventricular filling pattern with concomin ant abnormal relaxation and increased filling pressure (grade 2 diastolic dysfunction). There is a left ventricular apical thrombus noted. RIGHT VENTRICLE The right ventricular size is normal. The right ventricular systoilc function is moderately decreased. LEFT ATRIUM The left atrial size is normal. RIGHT ATRIUM The right atrial size is normal. ATRIAL SEPTUM No atrial level shunt is demonstrated by color flow Doppler interrogation. AORTA The aortic root and proximal ascending aorta are normal in size on limited imaging. MITRAL VALVE Structurally normal mitral valve. No mitral valve stenosis. Mild mitral valve regurgitation. AORTIC VALVE Trileaflet aortic valve. Mild aortic valve regurgitation. Eccentric aortic regurgitation jet directed at the mitral valve. No aortic valve stenosis. TRICUSPID VALVE Structurally normal tricuspid valve. There is mild to moderate tricuspid valve regurgitation. The estimated pulmonary arterial pressure is 54.4 mmHg. There is estimated moderate pulmonary hypertension present (range 50-60 mmHg). PULMONARY VALVE Mild pulmonary valve regurgitation. VESSELS There is less than 50% respiratory change in dimension of the inferior vena cava (abnormal). PERICARDIUM No pericardial effusion. Tristen Lazar DO (Electronically Signed) Final Date:19 April 2018 11:59
[2018-04-19] MEDS ORDERED: Lisinopril 10 MG Tablet PO ONE (13:12)
[2018-04-19] MEDS ORDERED: Spironolactone 25 MG Tablet PO ONE (13:12)
--- NOTE | 2018-04-19 16:04 | ECG ---
Date Performed: 04/18/2018 Time Performed: 18:12:55 PTAGE: 48 years EKG: Sinus rhythm LEFT ATRIAL ENLARGEMENT BORDERLINE LEFT AXIS DEVIATION NONSPECIFIC T-WAVE ABNORMALITY ANTEROSEPTAL M I, AGE UNDETERMINED PREVIOUS T INVERSION LATERALLY HAS IMPROVED, BUT DIFFUSE ST-T CHANGES PERSIST. AB NORMAL ECG PREVIOUS TRACING : 12/29/2017 02.43 DOCTOR: Alessandro Oliva Interpretating Date/Time 04/19/2018 16:03:43
--- NOTE | 2018-04-19 19:10 | MB ---
cc: Rian Cervantes MD DATE: 04/19/2018 HISTORY OF PRESENT ILLNESS: Kash is a 48-year-old gentleman with history of coronary artery disease status post PCI, myocardial infarction, ischemic cardiomyopathy, hypertension, nephrolithiasis, presents with a chief complaint of chest pain, seen by Dr. Rios in [place] ER yesterday. Currently, the patient is on a heparin drip, appears to be comfortable, no acute distress. Denies any fever, chills, cough, GI or bleeding, PND, orthopnea or dizziness. PAST MEDICAL HISTORY: Includes myocardial infarction, cardiac catheterization 01/2017. He underwent angioplasty and stent placement. EF was 20% at that point in time. ALLERGIES: NONE. SOCIAL HISTORY: Smokes every day. Alcohol 2-4 times a month. CURRENT MEDICATIONS: In the hospital: 1. Aspirin 81 mg a day. 2. Atorvastatin 80 mg at bedtime. 3. Coreg 6.25 mg b.i.d. 4. Lasix 20 mg IV b.i.d. 5. Heparin bolus and drip. 6. Prinivil 10 mg daily. 7. IV nitro. 8. Aldactone 25 mg daily. PHYSICAL EXAMINATION: VITAL SIGNS: Saturations 97% on room air, blood pressure 143/92, pulse 76, temperature 97.7, respiratory rate 17. GENERAL: He is alert and oriented x3, in no acute distress. NECK: Supple. No JVD. No bruit. CARDIOVASCULAR: S1, S2. No murmurs, rubs or gallops. LUNGS: Clear to auscultation bilaterally. ABDOMEN: Soft, nontender, nondistended with positive bowel sounds. EXTREMITIES: No lower extremity edema. LABORATORY DATA: His EKG shows normal sinus rhythm at 96 beats per minute, LVH, nonspecific ST-T wave changes. Chest x-ray: Cardiomegaly with minimal interstitial edema pattern. No consolidation or significant effusion. Echocardiogram: EF less than 20%, mild LVH, mid to apical left ventricle anterior, inferior and lateral appears akinetic. Left ventricular apical thrombus is noted. Mild MR, mild AI. PA systolic pressure 60 mmHg. White count 11.7, hemoglobin 12.7, hematocrit 38.9, platelet count 233. INR is 1.1, PTT 40.1. Sodium 143, potassium 3.9, chloride 100, bicarbonate 29, BUN 19, creatinine 1.12. Total bilirubin is 1.2. Troponin 0.12, 0.11, 0.11. BNP 1997. LDL is 31. DIAGNOSES: 1. [id number] myocardial infarction. 2. Ischemic cardiomyopathy. 3. Coronary artery disease. 4. Tobacco abuse. 5. Hypokalemia. 6. Hyperbilirubinemia. 7. Left ventricular apical thrombus. 8. Elevated white count. 9. Anemia. DISCUSSION: The patient is on optimal medical therapy. I do think that a left heart catheterization is medically necessary. Recommend to continue heparin drip. The patient will need long-term anticoagulation after that. Also recommend considering case management consult for consideration of transfer to [facility] for consideration of heart transplant. I strongly advised the patient to stop smoking. Rian Cervantes MD AWC/sv , 06:22 PM , 06:31 PM
[2018-04-19] MEDS: Carvedilol 6.25 MG Tablet PO SCH (21:29)
[2018-04-20] MEDS: Morphine Sulfate Inj 2 MG/ML Vial IV.PUSH PRN (04:12)
[2018-04-20] MEDS: Sod Chloride 0.9% Inj 1,000 ML IV.CONT SCH ×2 (04:43→14:54)
[2018-04-20 06:19] LABS: Hematocrit 36.5 % (39.0-51.0); Hemoglobin 11.9 gm/dL (13.0-17.0); Mean Corpuscular HGB Conc 32.6 % (32.0-36.0); Mean Corpuscular Hemoglobin 28.9 pg (27.0-34.0); Mean Corpuscular Volume 88.5 fL (80.0-100.0); Mean Platelet Volume 7.9 fL (7.0-11.0); Platelet Count 220 th/mm3 (150-450); Red Blood Count 4.13 mil/mm3 (4.50-5.90); Red Cell Distribution Width 15.6 % (11.6-17.2)
[2018-04-20 06:40] LABS: Calcium 8.3 mg/dL (8.5-10.1); Potassium 3.6 meq/L (3.5-5.1)
[2018-04-20] MEDS: Lisinopril 10 MG Tablet PO SCH (08:59)
[2018-04-20] MEDS: Spironolactone 25 MG Tablet PO SCH (09:00)
[2018-04-20] MEDS: Carvedilol 6.25 MG Tablet PO SCH ×2 (09:00→21:41)
[2018-04-20] MEDS: Senna/Docusate Sodium 8.6/50 MG Tablet PO SCH ×2 (09:01→21:42)
--- NOTE | 2018-04-20 09:49 | P.PNIM ---
Subjective Interval history: Follow-up for elevated troponin, chest pain in a patient with a history of CAD, stent placement, cardiomyopathy with ejection fraction less than 20% now. Patient is currently resting in bed. Denies any chest pain, shortness of breath, fever or chills. He is currently n.p.o. for possible cardiac catheterization by Dr. Cervantes. Physical Exam Vital signs: Vital Signs 04/19/18 09:56 04/19/18 12:00 04/19/18 13:00 Temperature Pulse Rate 76 68 64 Respiratory Rate Blood Pressure Pulse Oximetry 04/19/18 14:00 04/19/18 15:00 04/19/18 16:00 Temperature Pulse Rate 68 77 84 Respiratory Rate Blood Pressure Pulse Oximetry 04/19/18 16:35 04/19/18 17:00 04/19/18 18:00 Temperature Pulse Rate 82 72 Respiratory Rate Blood Pressure Pulse Oximetry 97 04/19/18 19:00 04/19/18 19:44 04/19/18 20:00 Temperature 97.9 F Pulse Rate 74 78 72 Respiratory Rate 18 Blood Pressure 162/114 H Pulse Oximetry 98 98 04/19/18 21:00 04/19/18 22:00 04/19/18 23:00 Temperature Pulse Rate 76 78 78 Respiratory Rate Blood Pressure Pulse Oximetry 04/20/18 00:00 04/20/18 01:00 04/20/18 02:00 Temperature 98.4 F Pulse Rate 65 62 86 Respiratory Rate 18 Blood Pressure 149/97 H Pulse Oximetry 98 04/20/18 03:00 04/20/18 04:00 04/20/18 05:00 Temperature 98.2 F Pulse Rate 86 92 H 78 Respiratory Rate 16 Blood Pressure 163/112 H Pulse Oximetry 98 04/20/18 06:00 04/20/18 07:49 04/20/18 08:00 Temperature 97.7 F Pulse Rate 80 70 Respiratory Rate 16 Blood Pressure 146/92 H Pulse Oximetry 97 97 Intake & Output 04/19/18 04/20/18 04/20/18 18:59 06:59 18:59 Intake Total 1999 1480 / 1480 Output Total 650 / 650 Balance 1999 830 / 830 Weight 85 kg Intake: IV 1999 1000 / 1000 NS Inj 1,000 ML @ 100 mls/hr IV 1999 1000 / 1000 .CONT .Q10H MAURI Rx#:[id number] Oral 480 / 480 Output: Urine 650 / 650 Other: Date of Last Bowel Movement 04/20/18 04/20/18 # Bowel Movements 1 Narrative: GENERAL: Well-nourished, well-developed patient. SKIN: Warm and dry. HEAD: Normocephalic. EYES: No scleral icterus. No injection or drainage. NECK: Supple, trachea midline. No JVD or lymphadenopathy. CARDIOVASCULAR: Regular rate and rhythm without murmurs, gallops, or rubs. RESPIRATORY: Breath sounds equal bilaterally. No accessory muscle use. GASTROINTESTINAL: Abdomen soft, non-tender, nondistended. MUSCULOSKELETAL: No cyanosis, or edema. BACK: Nontender without obvious deformity. No CVA tenderness. Results Labs CBC & Chem 7: 04/20/18 06:10 04/20/18 06:10 Assessment and Plan Plan Mr. Miller is a pleasant 48-year-old male with a history of CT x2 with stent placement, severe ischemic cardiomyopathy with ejection fraction 25- 30% who presented to the emergency department on 04/19/2018 due to pressure-like chest pain. His last stent was placed in January 2017. He has been off Plavix due to missed appointments. His troponins are 0.12, 0.11, 0.11. BNP was close to 2000. Non-ST elevation myocardial infarction Ischemic cardiomyopathy with ejection fraction 25-30% CAD with history of PCI/stent placement Systolic heart failure, chronic (Compensated) No acute ST changes. Troponins are mildly elevated. Cardiology consulted, Dr. Cervantes is planning to perform cardiac catheterization today. Repeat echocardiogram shows ejection fraction less than 20%. AICD is indicated. I discussed with Dr. Cervantes who agreed with EP consultation for AICD placement. Continue aspirin 81 mg daily and atorvastatin to 80 mg nightly carvedilol 6.25 mg twice daily lisinopril 10 mg p.o. daily spironolactone 25 mg p.o. daily. Currently on IV Lasix. Consider switching to p.o. torsemide upon discharge. Acute kidney injury Hypokalemia Creatinine 1.2 on admission currently 1.07. Potassium 3.6 today. Tobacco abuse Patient is heavily counseled on the importance of quitting tobacco. Patient verbalized understanding. He is aware of the resources available through the state. Patient is also advised to follow-up with [facility] for primary care needs. Full code. Heparin drip. Discharge: EP consulted. Likely discharge after AICD placed (If determined to be necessary by EP).
[2018-04-20] MEDS: Nitroglycerin Drip Premix 50 MG/250 ML BOTTLE IV.CONT PRN (14:52)
[2018-04-20] MEDS ORDERED: Heparin/NS PF Inj 1,000 ML ONE (16:11)
[2018-04-20] MEDS ORDERED: fentaNYL Citrate Inj 100 MCG/2 ML Ampul ONE (16:12)
--- NOTE | 2018-04-20 17:00 | CATHPROC ---
[employer] HIS Report Study Information Study Number Admission Scheduled Start Study Start [id number] Apr 18 2018 8:16PM 04/20/2018 Apr 20 2018 3:59PM [place] [facility] Cardiac Catheterization Admit Source Facility Department Emergency department [facility] - Religious Education Coordinator Physician and Clinical Staff Initial Rian [place] District Traffic Chief Chana Gray BSN Recorder Tiara Ortega,RT(R) (BS) Scrub Mahesh Marshall RCIS(BS) Procedures Performed Procedure Location (Site) Vessel Name Coronary Angiograms LCA Left Coronary Coronary Angiograms RCA Right Coronary Equipment Time Marketing Communications Assistant Description Size Mfg Part Number Used/Scraped TRANSDUCER, TRUWAVE [id number] 16:20 ROCHA FIGUEREDO * Used W/STOCKCOCK *[id number] *[id number] *[id number] 16:20 mon.ki BLANKET,WARM AIR CCL * Used *[id number] 16:20 mon.ki PACK, CCL CUSTOM * Used *[id number] 16:20 iWantoo PACER PEN, SKIN DUAL W/ RULER * Used *[id number] 16:20 [employer] WIRE, 3MMJ .035 180CM 180CM Used *[id number] 16:20 NAMIC MANIFOLD, 4 PORT * Used *[id number] 16:20 NYCOMED OMNIPAQUE, 350 MG, 150ML 150ML [id number] Used [id number] 16:20 TERUMO MEDICAL SHEATH, FR4 TERUMO (10CM) FR 4 Used *[id number] History: Current Medications Medication Dosage/Unit Route Frequency Last Date/Time Taken Beta [place] Statins (any) ASA History: Allergies Allergy Reaction No Known Allergies History: Risk Factors Family History of Hypertension Dyslipidemia Previous NC Previous Heart Failure Premature CAD Yes Yes No Yes No Prior Valve Prior PCI Prior PCIDate Prior CABG Surgery No Yes 01/30/2017 No Cerebrovascular Peripheral Artery Chronic Lung On Dialysis Diabetes Disease Disease Disease No No No No No History: Symptoms/Diagnosis Selection Items Chest pain SOB History: Stress Tests Stress or Imaging Studies Performed No History: Other Current Smoker Method Packs a Day Years Used Pack Years Yes Cigarettes 1 20 20 Labs Hgb (g/dl) Hct (%) WBC (l/cumm) Platelets (thousands) 11.60-17.00 35.00-51.00 4.00-11.00 150.00-450.00 11.9 36.5 4 220 Glucose (mg/dl) BUN (mg/dl) Creatinine (mg/dl) BUN:Creatinine (1:x) 74.00-106.00 7.00-18.00 0.50-1.30 10.00-20.00 104 19 1.0 19 Na (meq/l) K (meq/l) 136.00-145.00 3.50-5.10 143 3.6 Troponin I (ng/ml) CPK (u/l) CPK-MB (ng/ML) 0.02-0.05 26.00-308.00 0.50-3.60 0.11 106 Not Drawn Medication Medication Total Dose (Bolus/Oral) Medication Total Dosage/Unit 1% XYLOCAINE 20 mL FENTANYL 25 mcg VERSED 1 mg Medications (Bolus/Oral) Medication Time Given Dosage/Unit Administered By Reason VERSED 04/20/2018 4:22:17 PM 1 mg Chana Gray 1 mg VERSED given in lab by Chana Gray BSN via Peripheral IV. FENTANYL 04/20/2018 4:23:22 PM 25 mcg Chana Gray 25 mcg FENTANYL given in lab by Chana Gray BSN via Peripheral IV. 1% XYLOCAINE 04/20/2018 4:27:33 PM 20 mL Rian Cervantes 20 mL 1% XYLOCAINE given in lab by Rian Cervantes in Right Groin via Subcutaneous. Medication (Drip) Medication Time Given Dosage/Unit Concentration/Unit Diluent (ml) Solution HEPARIN DRIP 04/20/2018 3:58:10 PM 0 units/hr 75480 units 250 D5W Patient arrived on 0 units/hr HEPARIN DRIP via Peripheral IV. Pump/Drip Flow = 0 ml/hr using D5W [place] [address] units in 250 ml. IV Solutions 04/20/2018 4:04:01 PM 0 mL (IV) 500 NaCl .9 Patient arrived on IV Solutions via Peripheral IV. Pump/Drip Flow = 30 ml/hr using NaCl .9. NITROGLYCERIN DRIP 04/20/2018 4:07:32 PM 60 mcg/min 50 mg 250 D5W Patient arrived on 60 mcg/min NITROGLYCERIN DRIP via Peripheral IV. Pump/Drip Flow = 18 ml/hr using D 5W with a concentration of 50 mg in 250 ml. Initial Case Assessment Cardiovascular HR Rhythm Chest Pain 71 irr 0 Edema Present Skin color Skin Moderate Normal Warm Dry Circulatory - Right Pulses Dorsalis Pedis Femoral 2 2 Scale (0,1,2,3,4,d) Circulatory - Left Pulses Dorsalis Pedis Femoral 2 2 Scale (0,1,2,3,4,d) Circulatory - Lower Extremities Color Lower Right Color Lower Left Normal Normal Neurological State Oriented to time-place- Alert Moves all extremities person Respiration - General Respiration Rate SpO2 (%) (B/min) 20 97 Chronological Log Time Study Chronological Log Patient arrived on 0 units/hr HEPARIN DRIP via Peripheral IV. Pump/Drip Flow = 0 ml/hr using D5 W with [place] 15:58:[place] [address] units in 250 ml. 16:00:04 Patient arrived via Bed. 16:00:05 Patient Name, D.O.B, / Armband Verified By R.N. 16:00:06 Consent signed by the physician and the patient and verified by the Religious Education Coordinator staff. 16:00:06 Pre-op and post- op instructions given; patient acknowledges understanding of instructions. 16:03:49 Presedation assessment performed by Religious Education Coordinator RN. 16:03:53 Patient has been NPO for More than 6Hrs. 16:03:54 Skin Breakdown- none noted or reported 16:03:54 Patient Warmer Placed on the Table. 16:03:59 Skye Prominences Protected 16:04:00 A # 20 IV was noted in the Antecubital (right). Grade = 0 16:04:01 Patient arrived on IV Solutions via Peripheral IV. Pump/Drip Flow = 30 ml/hr using NaCl .9. 16:04:01 History and physical on the chart or being dictated. Assessment: Initial Case, HR=71 BPM, Rhythm=irr, Chest Pain=0, Edema=Mod, Color=Normal, Skin = Warm, Dry Right Pulses: Yaniv Ped=2, Femoral=2 Left Pulses: Yaniv Ped=2, Femoral=2 16:04:02 Lower Right Extremities: Color=Normal Lower Left Extremities: Color=Normal Neurological: State=Alert, Ox3, DONOHUE Respiration: Resp=20 B/min, SpO2=97 % 16:04:04 Table restraints applied according to hospital policy Patient arrived on 60 mcg/min NITROGLYCERIN DRIP via Peripheral IV. Pump/Drip Flow = 18 ml/hr u sing D5W with a 16:07:32 concentration of 50 mg in 250 ml. 16:10:20 Bilateral groins prepped with 2% chlorhexidine, and draped after a 3 minute waiting time. 16:13:06 MD paged Vitals capture started with the following parameters, Patient=Adult, Interval=5 min, Initial Pr tziwsj=785 mmHg, 16:14:08 Deflation Rate=5 mmHg, Cuff placed on Left Arm 16:14:28 Reference ECG taken 16:15:38 Vitals capture stopped. Vitals capture started with the following parameters, Patient=Adult, Interval=5 min, Initial Pr cwnvlp=881 mmHg, 16:15:59 Deflation Rate=5 mmHg, Cuff placed on Left Arm 16:16:40 HR=75 bpm, EBOI=399/100 mmhg, SpO2=98.0 %, Resp=8 B/min, Pain=0, Mari=10, Uriostegui=2 16:17:11 Pressure channel 1 zeroed. 16:21:39 HR=69 bpm, DHFR=635/101 mmhg, SpO2=95.0 %, Resp=19 B/min, Pain=0, Mari=10, Uriostegui=2 16:22:17 1 mg VERSED given in lab by Chana Gray BSN via Peripheral IV. 16:22:42 MD arrived 16:23:22 25 mcg FENTANYL given in lab by Chana Gray BSN via Peripheral IV. 16:26:40 HR=78 bpm, LGPT=719/101 mmhg, SpO2=97.0 %, Resp=24 B/min, Pain=0, Mari=10, Uriostegui=2 Time Out. Correct patient, correct procedure, correct physician, labs, allergies, and equipment verified with greenhouse laborer 16:26:48 team present. Fire risk assesment completed (see hard stop sheet for coding). Time Out Conc urred by MD and individual staff in procedure. 16:27:01 Case Start 16:27:33 20 mL 1% XYLOCAINE given in lab by Rian Cervantes in Right Groin via Subcutaneous. 16:28:23 Access site was Right Femoral Artery. 16:28:29 A SHEATH, FR4 TERUMO (10CM) FR 4 was advanced into the Fem Art (right) using the Percutaneo us technique. 16:29:12 Activated Clotting Time Drawn A JR 4.0 INFINITI CATHETER FR 4 was advanced over a wire. OMNIPAQUE, 350 MG, 150ML 150ML was us ed for 16:29:43 injections. Recorded Pressure: Ao, HR=78, Condition=Condition 1 16:30:00 (Aorta) Ao 134/97/114 16:30:20 The RCA was injected and visualized at various angles. OMNIPAQUE, 350 MG, 150ML 150ML used . 16:30:31 Catheter was removed A JL 4.0 INFINITI CATHETER FR 4 was advanced over a wire. OMNIPAQUE, 350 MG, 150ML 150ML was us ed for 16:30:32 injections. 16:31:39 HR=74 bpm, XBYJ=100/95 mmhg, SpO2=98.0 %, Resp=28 B/min, Pain=0, Mari=10, Uriostegui=2 16:31:57 The LCA was injected and visualized at various angles. OMNIPAQUE, 350 MG, 150ML 150ML used . 16:32:15 ACT (Normal Range 90-180) = 163 16:33:37 Catheter was removed 16:35:22 Case End (Physician broke scrub) 16:35:35 Catheter(s) removed without difficulty 16:36:01 No case complications noted. 16:36:15 Bedside Report will be given. 16:36:42 HR=71 bpm, BUSR=141/91 mmhg, SpO2=97.0 %, Resp=8 B/min, Pain=0, Mari=10, Uriostegui=2 16:37:34 Sheath removed; pressure applied to access site. 16:41:41 HR=75 bpm, UMZQ=686/89 mmhg, SpO2=96.0 %, Resp=13 B/min, Pain=0, Mari=10, Uriostegui=2 16:46:38 HR=72 bpm, ZBAR=269/90 mmhg, SpO2=96.0 %, Resp=15 B/min, Pain=0, Mari=10, Uriostegui=2 16:51:39 HR=70 bpm, DZWH=928/97 mmhg, SpO2=97.0 %, Resp=16 B/min, Pain=0, Mari=10, Uriostegui=2 16:52:18 Sterile dressing applied to site 16:56:15 Vitals capture stopped. 16:56:19 Patient moved to stretcher End Study - Contrast Media Used In Study Contrast Total Opened (mL) Total Used (mL) Total Wasted (mL) Omnipaque 350 45 45 0 End Study - Maximum Contrast Load Max Contrast Load (mL) 425.0 End Study - Radiation Exposure Fluoro Time Fluoro Dose (mGy) Cine Dose (uGym2) (minutes) 0.8 664 3588 End Study - Sheaths Sheaths Pulled By Sheath Hold Time (min) Mahesh Marshall End Study - Patient Disposition Complications Transferred To Interventional Outcome No Telemetry Bed No attempt made
--- NOTE | 2018-04-20 17:10 | MR ---
cc: Rian Cervantes MD DATE: 04/20/2018 PROCEDURE: Left heart catheterization and coronary angiography. INDICATIONS FOR PROCEDURE: This is a non-STEMI, ischemic cardiomyopathy, LV thrombus. PROCEDURE IN DETAIL: The patient was brought to the cardiac catheterization laboratory, prepped and draped in the usual sterile fashion; 10 mL of 1% lidocaine was used to locally anesthetize the right common femoral artery. A 4-Syriac sheath was placed in right common femoral artery; 4-Syriac JR4 and JL4 catheters were used to perform left and right coronary angiography and left ventriculography. FINDINGS: LV pressures were not done. The right coronary artery is occluded after the RV branch; has an ostial 95% stenosis; appears to be ectatic as well. Left main coronary artery has a relative stenosis distally compared to proximally of about 30%. Difficult to tell whether this is a normal vessel tapering versus partially due to plaque. He has a 60%-70% in-stent stenosis in the proximal LAD just proximal to a medium to large diagonal vessel. This vessel was jailed by the stents; has an ostial 95% stenosis. It has a reference vessel diameter of 2.75 mm. The LAD is transapical and has no significant disease angiographically. It supplies left to right collaterals to the right. The right PDA is a small vessel, reference vessel diameter of 0.5 mm. The left circumflex vessel has disease up to 50% in the proximal segment. There is a large first obtuse marginal vessel, which has moderate disease just proximal to a bifurcation up to 50% angiographically. CONCLUSION: 1. Angiographically moderate to severe 3-vessel coronary artery disease in a right dominant system as detailed above. 2. A 60%-70% in-stent stenosis of the mid left anterior descending. 3. A 95% ostial disease of the first diagonal artery. 4. Left ventricular apical thrombus by echo. 5. Cardiomyopathy of 20%. 6. Percutaneous coronary intervention in this individual be extremely high risk as the left anterior descending is a left main equivalent as it supplies significant collaterals to the right posterior descending artery in addition to the patient's baseline ejection fraction of 20%, which has not improved since 01/2017. I suspect this diagonal vessel is the culprit lesion for his chest pain and troponin elevation. RECOMMENDATIONS: 1. At this point in time, would follow Dr. Jordy's recommendation for ICD. Once ICD has been addressed, would recommend starting Coumadin with INR of 2-3. 2. We will also get a case management consult for consideration for transfer for evaluation of heart transplant, and I have strongly advised the patient to stop smoking. 3. We will resume his heparin drip 2 hours after the 4-Syriac sheath is removed. MD ABBY Shafer/radha/bryce , 04:43 PM , 04:53 PM
[2018-04-20] MEDS ORDERED: Iohexol 350 MG/ML 50 ML Vial (for Cath Lab) IVCONTRAST ONE (18:09)
[2018-04-20] MEDS: Heparin Drip 25,000 UNIT/250 ML BAG IV.CONT PRN (21:49)
[2018-04-20] MEDS ORDERED: Warfarin Consult Pharmacy OTHER PRN (22:58)
[2018-04-21] MEDS: Melatonin 5 MG Tablet PO PRN ×2 (00:27→22:02)
[2018-04-21] MEDS: Morphine Sulfate Inj 2 MG/ML Vial IV.PUSH PRN ×2 (00:30→17:10)
[2018-04-21] MEDS: Sod Chloride 0.9% Inj 1,000 ML IV.CONT SCH ×2 (00:35→10:40)
[2018-04-21 05:36] LABS: Hematocrit 38.7 % (39.0-51.0); Hemoglobin 12.7 gm/dL (13.0-17.0); Mean Corpuscular HGB Conc 32.8 % (32.0-36.0); Mean Corpuscular Hemoglobin 29.1 pg (27.0-34.0); Mean Corpuscular Volume 88.7 fL (80.0-100.0); Mean Platelet Volume 8.5 fL (7.0-11.0); Platelet Count 242 th/mm3 (150-450); Red Blood Count 4.36 mil/mm3 (4.50-5.90); Red Cell Distribution Width 15.7 % (11.6-17.2); White Blood Count 7.9 th/mm3 (4.0-11.0)
[2018-04-21 05:59] LABS: Activated Partial Thrombo Time 39.8 sec (23.4-31.7); INR 1.1 Ratio; Prothrombin Time 10.7 sec (9.8-11.6)
--- NOTE | 2018-04-21 08:28 | P.PNIM ---
Subjective Interval history: Follow-up for chest pain No chest pain overnight, no overnight events. Status post cardiac catheterization yesterday. No palpitations. Physical Exam Vital signs: Vital Signs 04/20/18 09:00 04/20/18 10:00 04/20/18 10:48 Temperature Pulse Rate 72 76 Respiratory Rate Blood Pressure Pulse Oximetry 97 04/20/18 11:00 04/20/18 11:04 04/20/18 12:00 Temperature 97.8 F Pulse Rate 81 78 76 Respiratory Rate 16 Blood Pressure 148/99 H Pulse Oximetry 96 04/20/18 13:00 04/20/18 14:00 04/20/18 14:58 Temperature 97.3 F L Pulse Rate 74 68 73 Respiratory Rate 16 Blood Pressure 142/97 H Pulse Oximetry 99 04/20/18 15:00 04/20/18 17:00 04/20/18 18:00 Temperature Pulse Rate 69 74 76 Respiratory Rate Blood Pressure Pulse Oximetry 04/20/18 19:57 04/20/18 20:00 04/21/18 00:00 Temperature 98.2 F Pulse Rate 74 76 Respiratory Rate 20 Blood Pressure 150/102 H Pulse Oximetry 98 98 99 04/21/18 04:00 Temperature Pulse Rate 80 Respiratory Rate 20 Blood Pressure 151/109 H Pulse Oximetry 96 Intake & Output 04/20/18 04/21/18 04/21/18 18:59 06:59 18:59 Intake Total 1600 / 1600 1250 / 1250 Output Total 1020 / 1020 Balance 580 / 580 1250 / 1250 Weight 84 kg Intake: IV 1100 / 1100 1250 / 1250 Heparin/D5W 25,000 U/250 mL 25, 250 / 250 000 unit In 250 ml @ Per Protocol IV.CONT TITRATE PRN Rx #:[id number] Nitroglycerin Drip Premix 50 mg 100 / 100 In 250 ml @ Per Protocol IV. CONT TITRATE PRN Rx#:[id number] NS Inj 1,000 ML @ 100 mls/hr IV 1000 / 1000 1000 / 1000 .CONT .Q10H MAURI Rx#:[id number] Oral 500 / 500 Output: Urine 1020 / 1020 Other: Date of Last Bowel Movement 04/20/18 04/20/18 Narrative: GENERAL: Not in distress. EYES: No scleral icterus. No injection or drainage. NECK: Supple, trachea midline. No JVD or lymphadenopathy. CARDIOVASCULAR: Regular rate and rhythm without murmurs, gallops, or rubs. RESPIRATORY: Breath sounds equal bilaterally. No accessory muscle use. GASTROINTESTINAL: Abdomen soft, non-tender, nondistended. MUSCULOSKELETAL: No cyanosis, or edema. Alert awake and oriented x3, no cranial nerve deficits, no focal neurologic deficits. Results Labs CBC & Chem 7: 04/21/18 04:47 04/20/18 06:10 Assessment and Plan Plan Mr. Miller is a pleasant 48-year-old male with a history of [place] x2 with stent placement, severe ischemic cardiomyopathy with ejection fraction 25- 30% who presented to the emergency department on 04/19/2018 due to pressure-like chest pain. His last stent was placed in January 2017. He has been off Plavix due to missed appointments. His troponins are 0.12, 0.11, 0.11. BNP was close to 2000. Non-ST elevation myocardial infarction Ischemic cardiomyopathy with ejection fraction 25-30% CAD with history of PCI/stent placement Systolic heart failure, chronic (Compensated) No acute ST changes. Troponins are mildly elevated. Cardiology consulted, Dr. Cervantes is following, status post cardiac catheterization 04/20/2018, showed moderate to severe three-vessel coronary artery disease, 60-70% in-stent stenosis of the mid LAD, 95% ostial disease of the first diagonal artery, cardiomyopathy 20%. Repeat echocardiogram shows ejection fraction less than 20%. For AICD placement but might be done as outpatient, start anticoagulation with Coumadin. Consult case management for consideration for transfer for evaluation for heart transplantation. He needs to stop smoking. Patient refuses a LifeVest. Continue aspirin, Coreg, lisinopril, spironolactone, Lasix. Switch to torsemide on discharge. Awaiting final input from Dr. Spence Left ventricular thrombus-found on cardiac catheterization, EF 20%, continue heparin drip, Coumadin started. INR 1.1. Pharmacy following. Continue Coumadin and low-dose aspirin for 3 months. Should undergo another echo study in 3 months. Will need to be anticoagulated before discharge because of the risks. Will check with cardiology if Lovenox is an option? Acute kidney injury Hypokalemia Creatinine now within normal limits. Hypokalemia resolved. Tobacco abuse Patient is heavily counseled on the importance of quitting tobacco. Patient verbalized understanding. He is aware of the resources available through the state. Patient is also advised to follow-up with [facility] for primary care needs. Full code. Heparin drip. Discharge: Discharge once cleared by cardiology Progress Note: Quality VTE Deep Vein Thrombosis/Pulmonary Embolism Present on Admission: No
[2018-04-21] MEDS: Spironolactone 25 MG Tablet PO SCH (09:33)
[2018-04-21] MEDS: Lisinopril 10 MG Tablet PO SCH (09:33)
[2018-04-21] MEDS: Carvedilol 6.25 MG Tablet PO SCH ×3 (09:34→22:01)
[2018-04-21] MEDS: Senna/Docusate Sodium 8.6/50 MG Tablet PO SCH ×2 (09:34→22:01)
--- NOTE | 2018-04-21 13:38 | P.PNCA ---
Subjective Interval history: alert in nad, had mild chest pain, trending better Medications and Allergies Active Medications: Active Medications Acetaminophen (Tylenol) 650 mg PO Q4H PRN PRN Reason: Temp > 100.4 Last Admin: 04/19/18 08:47 Dose: 650 mg Al Hydroxide/Mg Hydroxide (Milk Of Magnesia Liq) 30 ml PO Q12H PRN PRN Reason: Mild Constipation Aspirin (Ecotrin) 81 mg PO DAILY [facility] Last Admin: 04/21/18 09:34 Dose: 81 mg Atorvastatin Calcium (Lipitor) 80 mg PO HS [facility] Last Admin: 04/20/18 21:41 Dose: 80 mg Bisacodyl (Dulcolax Supp) 10 mg RECTAL DAILY PRN PRN Reason: SEVERE CONSITIPATION Carvedilol (Coreg) 6.25 mg PO BID [facility] Last Admin: 04/21/18 09:39 Dose: 6.25 mg Furosemide (Lasix Inj) 20 mg IV.PUSH BID@0900,1800 [facility] Last Admin: 04/21/18 09:35 Dose: 20 mg Heparin Sodium/Dextrose (Heparin/D5w 25,000 U/250 Ml) 25,000 unit in 250 mls @ 0 mls/hr IV.CONT TITRATE PRN; Protocol PRN Reason: Per Protocol Last Admin: 04/20/18 21:49 Dose: 1,100 units/hr, 11 mls/hr Sodium Chloride (Ns Inj) 1,000 mls @ 100 mls/hr IV.CONT .Q10H [facility] Last Admin: 04/21/18 00:35 Dose: 100 mls/hr Lactulose (Lactulose Liq) 30 ml PO DAILY PRN PRN Reason: SEVERE CONSITIPATION Lisinopril (Prinivil) 10 mg PO DAILY [facility] Last Admin: 04/21/18 09:33 Dose: 10 mg Melatonin (Melatonin) 5 mg PO HS PRN PRN Reason: INSOMNIA Last Admin: 04/21/18 00:27 Dose: 5 mg Morphine Sulfate (Morphine Inj) 2 mg IV.PUSH Q4H PRN PRN Reason: PAIN SCALE 6 TO 10 Last Admin: 04/21/18 00:30 Dose: 2 mg Nitroglycerin (Nitro-Bid 2% Oint) 2 inch TOPICAL Q6H [facility] Last Admin: 04/21/18 12:43 Dose: 2 inch Ondansetron HCl (Zofran Inj) 4 mg IV.PUSH Q6H PRN PRN Reason: NAUSEA OR VOMITING Last Admin: 04/20/18 04:12 Dose: 4 mg Ondansetron HCl (Zofran Inj) 4 mg IV.PUSH Q4H PRN PRN Reason: NAUSEA Pharmacy Profile Note (Coumadin Consult Pharmacy) 1 each OTHER UNSCH PRN PRN Reason: PHARMACY DOCUMENTATION Senna/Docusate Sodium (Kaity-Colace) 1 tab PO BID [facility] Last Admin: 04/21/18 09:34 Dose: Not Given Sennosides (Senokot) 17.2 mg PO Q12H PRN PRN Reason: Moderate Constipation Sodium Chloride (Ns Flush) 2 ml IV.FLUSH BID [facility] Last Admin: 04/21/18 09:35 Dose: Not Given Sodium Chloride (Ns Flush) 2 ml IV.FLUSH PRN PRN PRN Reason: FLUSH AFTER USING IV ACCESS Spironolactone (Aldactone) 25 mg PO DAILY [facility] Last Admin: 04/21/18 09:33 Dose: 25 mg Warfarin Sodium (Coumadin) 5 mg PO DAILY@1600 [facility] Last Admin: 04/20/18 18:21 Dose: 5 mg Allergies Allergy/AdvReac Type Severity Reaction Status Date / Time No Known Allergies Allergy Verified 04/18/18 18:13 Home Medications Medication Instructions Recorded Confirmed Type atorvastatin 20 mg PO DAILY 12/28/17 04/18/18 History clonidine HCl 0.1 mg PO BID 12/28/17 04/18/18 History clopidogrel 75 mg PO DAILY 12/28/17 04/18/18 History nitroglycerin 0.4 mg SUBLINGUAL DIRECTED PRN 12/28/17 04/18/18 History furosemide [Lasix] mg PO DAILY 04/18/18 History potassium chloride meq PO DAILY 04/18/18 History Physical Exam Vital signs: Vital Signs 04/20/18 14:00 04/20/18 14:58 04/20/18 15:00 Temperature 97.3 F L Pulse Rate 68 73 69 Respiratory Rate 16 Blood Pressure 142/97 H Pulse Oximetry 99 04/20/18 17:00 04/20/18 18:00 04/20/18 19:00 Temperature Pulse Rate 74 76 72 Respiratory Rate Blood Pressure Pulse Oximetry 04/20/18 19:57 04/20/18 20:00 04/20/18 21:00 Temperature Pulse Rate 74 88 Respiratory Rate Blood Pressure Pulse Oximetry 98 98 04/20/18 23:00 04/21/18 00:00 04/21/18 01:00 Temperature 98.2 F Pulse Rate 74 76 74 Respiratory Rate 20 Blood Pressure 150/102 H Pulse Oximetry 99 04/21/18 02:00 04/21/18 03:00 04/21/18 04:00 Temperature Pulse Rate 76 72 80 Respiratory Rate 20 Blood Pressure 151/109 H Pulse Oximetry 96 04/21/18 05:00 04/21/18 06:00 04/21/18 07:00 Temperature Pulse Rate 84 76 76 Respiratory Rate Blood Pressure Pulse Oximetry 04/21/18 07:30 04/21/18 08:29 04/21/18 08:42 Temperature 98.7 F Pulse Rate 62 71 79 Respiratory Rate 17 Blood Pressure 147/112 H Pulse Oximetry 96 04/21/18 09:00 04/21/18 09:59 04/21/18 10:00 Temperature Pulse Rate 75 78 78 Respiratory Rate Blood Pressure Pulse Oximetry 04/21/18 11:19 Temperature 97.9 F Pulse Rate 68 Respiratory Rate 18 Blood Pressure 148/103 H Pulse Oximetry 96 Intake & Output 04/20/18 04/21/18 04/21/18 18:59 06:59 18:59 Intake Total 1600 / 1600 1250 / 1250 240 / 240 Output Total 1020 / 1020 1065 / 1065 Balance 580 / 580 1250 / 1250 -825 / -825 Weight 84 kg Intake: IV 1100 / 1100 1250 / 1250 Heparin/D5W 25,000 U/250 mL 25, 250 / 250 000 unit In 250 ml @ Per Protocol IV.CONT TITRATE PRN Rx #:[id number] Nitroglycerin Drip Premix 50 mg 100 / 100 In 250 ml @ Per Protocol IV. CONT TITRATE PRN Rx#:[id number] NS Inj 1,000 ML @ 100 mls/hr IV 1000 / 1000 1000 / 1000 .CONT .Q10H [facility] Rx#:[id number] Oral 500 / 500 240 / 240 Output: Urine 1020 / 1020 1065 / 1065 Other: Date of Last Bowel Movement 04/20/18 04/20/18 04/21/18 # Bowel Movements 1 - Constitutional no acute distress - Routine HEENT Exam Head: Present: normocephalic - Routine Neck Exam Present: supple - Routine Respiratory Exam Present: CTA bilaterally - Routine Cardiovascular Exam Present: S1, S2 - Routine Abdominal Exam Present: soft - Routine Extremities Exam Comments: no lisa Results 04/21/18 04:47 04/20/18 06:10 Coagulation 04/19/18 04/20/18 04/21/18 Range/Units 18:20 06:10 04:47 PT 10.7 (9.8-11.6) sec APTT 40.6 H 45.3 H 39.8 H (23.4-31.7) sec CBC 04/20/18 04/21/18 Range/Units 06:10 04:47 WBC 9.0 7.9 (4.0-11.0) th/mm3 RBC 4.13 L 4.36 L (4.50-5.90) mil/mm3 Hgb 11.9 L 12.7 L (13.0-17.0) gm/dL Hct 36.5 L 38.7 L (39.0-51.0) % Plt Count 220 242 (150-450) th/mm3 Comprehensive Metabolic Panel 04/20/18 Range/Units 06:10 Sodium 143 (136-145) meq/L Potassium 3.6 (3.5-5.1) meq/L Chloride 111 H (98-107) meq/L Carbon Dioxide 24.0 (21.0-32.0) meq/L BUN 19 H (7-18) mg/dL Creatinine 1.07 (0.60-1.30) mg/dL Calcium 8.3 L (8.5-10.1) mg/dL Intake and Output 04/20/18 04/21/18 04/21/18 22:59 06:59 14:59 Intake Total 850 / 850 1000 / 1000 240 / 240 Output Total 1020 / 1020 1065 / 1065 Balance -170 / -170 1000 / 1000 -825 / -825 Intake: IV 350 / 350 1000 / 1000 Heparin/D5W 25,000 U/250 mL 25, 250 / 250 000 unit In 250 ml @ Per Protocol IV.CONT TITRATE PRN Rx #:[id number] Nitroglycerin Drip Premix 50 mg 100 / 100 In 250 ml @ Per Protocol IV. CONT TITRATE PRN Rx#:[id number] NS Inj 1,000 ML @ 100 mls/hr IV 1000 / 1000 .CONT .Q10H [facility] Rx#:[id number] Oral 500 / 500 240 / 240 Output: Urine 1020 / 1020 1065 / 1065 Other: Date of Last Bowel Movement 04/20/18 04/20/18 04/21/18 # Bowel Movements 1 Weight 84 kg Assessment and Plan - Assessment (1) CAD (coronary artery disease) Code(s): I25.10 - Atherosclerotic heart disease of [place] coronary artery without angina pectoris Status: Acute (2) Cardiomyopathy Code(s): I42.9 - Cardiomyopathy, unspecified Status: Acute (3) LV (left ventricular) mural thrombus Code(s): I51.3 - Intracardiac thrombosis, not elsewhere classified Status: Acute (4) Tobacco abuse Code(s): Z72.0 - Tobacco use Status: Acute (5) ACS (acute coronary syndrome) Code(s): I24.9 - Acute ischemic heart disease, unspecified Status: Acute (6) H/O congestive heart failure Code(s): Z86.79 - Personal history of other diseases of the circulatory system Status: Acute (7) Acute exacerbation of congestive heart failure Code(s): I50.9 - Heart failure, unspecified Status: Acute (8) Dyspnea on exertion Code(s): R06.09 - Other forms of dyspnea Status: Acute - Plan 1.) ICM - continue coreg, lisinopril, lasix, aldactone; eval for heart transplant, i strongly advised the patient to stop smoking 2.) Apical thrombus, coumadin with heparin bridge 3.) CAD - medical management, angina improving with ntp, continue lipitor 80 mg hs
[2018-04-21] MEDS: Heparin Drip 25,000 UNIT/250 ML BAG IV.CONT PRN (17:16)
[2018-04-21] MEDS: Acetaminophen 325 MG Tablet PO PRN (22:02)
[2018-04-22] MEDS: Morphine Sulfate Inj 2 MG/ML Vial IV.PUSH PRN (00:26)
[2018-04-22 06:32] LABS: INR 1.1 Ratio; Prothrombin Time 11.2 sec (9.8-11.6)
[2018-04-22] MEDS: Spironolactone 25 MG Tablet PO SCH (09:52)
[2018-04-22] MEDS: Carvedilol 6.25 MG Tablet PO SCH ×2 (09:52→21:05)
[2018-04-22] MEDS: Lisinopril 10 MG Tablet PO SCH (09:52)
[2018-04-22] MEDS: Senna/Docusate Sodium 8.6/50 MG Tablet PO SCH ×2 (09:52→21:05)
--- NOTE | 2018-04-22 12:02 | MB ---
cc: Tomas Spence MD,Rian Gaines MD DATE: 04/19/2018 REASON FOR CONSULTATION: For evaluation for defibrillator insertion. HISTORY OF PRESENT ILLNESS: Mr. Miller is a 48-year-old gentleman with history of congestive heart failure, nonischemic cardiomyopathy, poor compliance with medical management. The patient of this year, but was referred for evaluation for defibrillator insertion for sudden prevention. The chart was reviewed. The patient was evaluated. ALLERGIES: None. SOCIAL HISTORY: At this moment, the patient denies drinking, but he reports smoking a cigarette every day. FAMILY HISTORY: Noncontributory to his current medical condition. MEDICATIONS: The gentleman is on atorvastatin 80 mg a day, Coreg 6.25 mg a day, Lasix, lisinopril, melatonin, Zofran, Aldactone, 5. Coumadin. REVIEW OF SYSTEMS: The patient is feeling better. No chest pain, no chest discomfort. No fever. PHYSICAL EXAMINATION: GENERAL: Alert, fully oriented. VITAL SIGNS: Blood pressure on evaluation was 142/92, pulse 76, respiratory rate 18. LUNGS: Ventilated. CARDIOVASCULAR: S1, S2. No gallop. No murmur. ABDOMEN: Soft. No mass or bruit. EXTREMITIES: No edema. DIAGNOSTIC DATA: Electrocardiogram: Sinus rhythm, poor R-wave progression, diffuse ST changes. LABORATORY DATA: Hemoglobin 14.1, white blood cell 11.7. INR was around 1. Potassium 3.0, creatinine 1.12. Troponin 0.11. Total cholesterol 95, triglyceride 135, LDL 31, HDL 38. ASSESSMENT AND RECOMMENDATIONS: Mr. Miller has chronic heart failure, cardiomyopathy. Previous to hospitalization, he was not taking his medication. He said cannot afford it. Also, echocardiogram showed a clot in that the left ventricular apex. I had a long conversation with Dr. Cervantes, as well as the managing team, and also the patient. The patient will need at least 6 weeks of anticoagulation, and then transesophageal echo before a decision for defibrillator can be taken. At the same time, I have a long conversation with this gentleman. This gentleman is refusing any device insertion. He states he is feeling well. He wanted to wait to see how his echo is, repeat again in the future, and he promises he is going to take his medication. At this point, my recommendation is to continue current management per your orders. Will see him on a p.r.n. basis. MD SAHIL Sanchez/erma/bryce , 11:34 AM , 11:45 AM
--- NOTE | 2018-04-22 14:17 | P.PNIM ---
Subjective Interval history: Follow-up for elevated troponin, cardiomyopathy with ejection fraction less than 20%. Patient is currently doing well. He does not have any chest pain, shortness of breath, fever or chills. We had a long discussion regarding anticoagulation and need for primary care provider as well as family support. Patient does not any primary care physician. He also does not have any family in this area. Physical Exam Vital signs: Vital Signs 04/21/18 15:00 04/21/18 16:00 04/21/18 17:00 Temperature 98.9 F Pulse Rate 84 76 78 Respiratory Rate 18 Blood Pressure 169/110 H Pulse Oximetry 75 L 04/21/18 17:06 04/21/18 17:30 04/21/18 18:00 Temperature Pulse Rate 76 Respiratory Rate 18 Blood Pressure Pulse Oximetry 97 04/21/18 19:00 04/21/18 20:00 04/21/18 21:00 Temperature 98.1 F Pulse Rate 73 73 75 Respiratory Rate 18 Blood Pressure 162/90 H Pulse Oximetry 73 L 04/21/18 22:00 04/21/18 23:00 04/22/18 00:00 Temperature 98.4 F Pulse Rate 74 78 78 Respiratory Rate 16 Blood Pressure 154/88 H Pulse Oximetry 99 04/22/18 01:00 04/22/18 02:00 04/22/18 03:00 Temperature Pulse Rate 75 54 L 70 Respiratory Rate 16 Blood Pressure Pulse Oximetry 04/22/18 04:00 04/22/18 05:00 04/22/18 06:00 Temperature 98.2 F Pulse Rate 68 77 78 Respiratory Rate 16 Blood Pressure 153/103 H Pulse Oximetry 98 04/22/18 07:00 04/22/18 08:00 04/22/18 09:00 Temperature 98 F Pulse Rate 65 87 74 Respiratory Rate 20 Blood Pressure 179/117 H Pulse Oximetry 99 04/22/18 09:39 04/22/18 10:00 04/22/18 11:00 Temperature Pulse Rate 78 77 Respiratory Rate Blood Pressure Pulse Oximetry 98 04/22/18 12:00 04/22/18 13:00 Temperature 98.1 F Pulse Rate 80 68 Respiratory Rate 20 Blood Pressure 148/101 H Pulse Oximetry 99 Intake & Output 04/21/18 04/22/18 04/22/18 18:59 06:59 18:59 Intake Total 1490 / 1490 480 / 480 Output Total 1065 / 1065 1475 / 1475 Balance 425 / 425 -995 / -995 Weight 84.5 kg Intake: IV 1250 / 1250 Heparin/D5W 25,000 U/250 mL 25, 250 / 250 000 unit In 250 ml @ Per Protocol IV.CONT TITRATE PRN Rx #:[id number] NS Inj 1,000 ML @ 100 mls/hr IV 1000 / 1000 .CONT .Q10H [facility] Rx#:[id number] Oral 240 / 240 480 / 480 Output: Urine 1065 / 1065 1475 / 1475 Other: Date of Last Bowel Movement 04/21/18 04/21/18 04/21/18 # Bowel Movements 1 Narrative: GENERAL: Alert, NAD. EYES: No scleral icterus. No injection or drainage. NECK: Supple, trachea midline. No JVD or lymphadenopathy. CARDIOVASCULAR: Regular rate and rhythm without murmurs, gallops, or rubs. RESPIRATORY: Breath sounds equal bilaterally. No accessory muscle use. GASTROINTESTINAL: Abdomen soft, non-tender, nondistended. MUSCULOSKELETAL: No cyanosis, or edema. Alert awake and oriented x3, no cranial nerve deficits, no focal neurologic deficits. Results Labs CBC & Chem 7: 04/21/18 04:47 04/20/18 06:10 Assessment and Plan (1) CAD (coronary artery disease): Code(s): I25.10 - Atherosclerotic heart disease of [place] coronary artery without angina pectoris Status: Acute (2) Cardiomyopathy: Code(s): I42.9 - Cardiomyopathy, unspecified Status: Acute (3) LV (left ventricular) mural thrombus: Code(s): I51.3 - Intracardiac thrombosis, not elsewhere classified Status: Acute (4) Tobacco abuse: Code(s): Z72.0 - Tobacco use Status: Acute (5) ACS (acute coronary syndrome): Code(s): I24.9 - Acute ischemic heart disease, unspecified Status: Acute (6) H/O congestive heart failure: Code(s): Z86.79 - Personal history of other diseases of the circulatory system Status: Acute (7) Acute exacerbation of congestive heart failure: Code(s): I50.9 - Heart failure, unspecified Status: Acute (8) Dyspnea on exertion: Code(s): R06.09 - Other forms of dyspnea Status: Acute Plan Mr. Miller is a pleasant 48-year-old male with a history of [place] x2 with stent placement, severe ischemic cardiomyopathy with ejection fraction 25- 30% who presented to the emergency department on 04/19/2018 due to pressure-like chest pain. His last stent was placed in January 2017. He has been off Plavix due to missed appointments. His troponins are 0.12, 0.11, 0.11. BNP was close to 2000. Non-ST elevation myocardial infarction Ischemic cardiomyopathy with ejection fraction 25-30% CAD with history of PCI/stent placement Systolic heart failure, chronic (Compensated) No acute ST changes. Troponins are mildly elevated. Status post cardiac catheterization. Dr. Cervantes recommends EP evaluation as well as future evaluation by [facility] for heart transplant. Repeat echocardiogram shows ejection fraction less than 20%. AICD is indicated. EP evaluated patient. Patient does not want any device at this point. Patient also cannot undergo any device placement due to LV thrombus and warfarin use. Ideally, patient should be evaluated in the outpatient setting in 3 months with repeat echo. AICD could be considered again during that time. Continue aspirin 81 mg daily and atorvastatin to 80 mg nightly carvedilol 6.25 mg twice daily lisinopril 10 mg p.o. daily spironolactone 25 mg p.o. daily. Currently on IV Lasix. We will change to torsemide 10 mg twice daily. LV thrombus Given patient's cardiomyopathy, he would likely need indefinite anticoagulation. Discussed with product ambassador who recommended continuing heparin and bridging to warfarin. If home health can be arranged, patient could potentially go home with Lovenox full dose to bridge to warfarin. He will need [facility] appointments so that INR can be monitored. Acute kidney injury Hypokalemia Creatinine 1.2 on admission currently 1.07. Potassium improved to 3.6. Tobacco abuse Patient is heavily counseled on the importance of quitting tobacco. Patient verbalized understanding. He is aware of the resources available through the state. Patient is also advised to follow-up with [facility] for primary care needs. Full code. Heparin drip, warfarin Progress Note: Quality VTE Deep Vein Thrombosis/Pulmonary Embolism Present on Admission: No _ (1) CAD (coronary artery disease) Qualifiers: Coronary Disease-Associated Artery/Lesion type: [place] vs. transplanted heart: Associated angina: (2) Cardiomyopathy Qualifiers: Cardiomyopathy type: (3) Acute exacerbation of congestive heart failure Qualifiers: Heart failure type:
[2018-04-22] MEDS ORDERED: amLODIPine 5 MG Tablet PO SCH (15:15)
[2018-04-22] MEDS: Heparin Drip 25,000 UNIT/250 ML BAG IV.CONT PRN (18:06)
[2018-04-23] MEDS: Morphine Sulfate Inj 2 MG/ML Vial IV.PUSH PRN (00:35)
[2018-04-23] MEDS: Melatonin 5 MG Tablet PO PRN (00:35)
[2018-04-23 06:49] LABS: INR 1.1 Ratio
[2018-04-23] MEDS: Senna/Docusate Sodium 8.6/50 MG Tablet PO SCH ×2 (10:49→21:16)
[2018-04-23] MEDS: Lisinopril 10 MG Tablet PO SCH (10:50)
[2018-04-23] MEDS: Spironolactone 25 MG Tablet PO SCH (10:51)
[2018-04-23] MEDS: amLODIPine 5 MG Tablet PO SCH (10:51)
[2018-04-23] MEDS: Carvedilol 6.25 MG Tablet PO SCH ×2 (10:51→21:15)
[2018-04-23] MEDS: Isosorbide Mononitrate 30 MG ER 24HR Tablet (Imdur) PO SCH (10:52)
--- NOTE | 2018-04-23 11:23 | P.PNIM ---
Subjective Interval history: Patient says he is feeling all right. Says that shortness of breath is improving. Denies chest pain. Physical Exam Vital signs: Vital Signs 04/22/18 12:00 04/22/18 13:00 04/22/18 14:00 Temperature 98.1 F Pulse Rate 80 68 70 Respiratory Rate 20 Blood Pressure 148/101 H Pulse Oximetry 99 04/22/18 15:00 04/22/18 15:41 04/22/18 16:00 Temperature 98 F Pulse Rate 71 77 78 Respiratory Rate 20 Blood Pressure 163/111 H Pulse Oximetry 94 L 04/22/18 17:00 04/22/18 18:00 04/22/18 19:00 Temperature Pulse Rate 82 76 79 Respiratory Rate Blood Pressure Pulse Oximetry 04/22/18 20:00 04/22/18 21:00 04/22/18 22:00 Temperature 98.1 F Pulse Rate 76 74 74 Respiratory Rate 18 Blood Pressure 179/115 H Pulse Oximetry 98 04/22/18 23:00 04/23/18 00:00 04/23/18 01:00 Temperature 97.2 F L Pulse Rate 71 66 86 Respiratory Rate 16 Blood Pressure 160/107 H Pulse Oximetry 98 04/23/18 02:00 04/23/18 03:00 04/23/18 04:00 Temperature Pulse Rate 70 71 66 Respiratory Rate Blood Pressure Pulse Oximetry 04/23/18 05:00 04/23/18 06:00 04/23/18 08:59 Temperature Pulse Rate 84 73 Respiratory Rate Blood Pressure Pulse Oximetry 98 Intake & Output 04/22/18 04/23/18 04/23/18 18:59 06:59 18:59 Intake Total 1210 / 1210 Output Total 900 / 900 Balance 310 / 310 Weight 81.4 kg Intake: IV 250 / 250 Heparin/D5W 25,000 U/250 mL 25, 250 / 250 000 unit In 250 ml @ Per Protocol IV.CONT TITRATE PRN Rx #:[id number] Oral 960 / 960 Output: Urine 900 / 900 Other: Date of Last Bowel Movement 04/22/18 # Bowel Movements 2 Narrative: GENERAL: Sitting up in bed. Appears comfortable. EYES: No scleral icterus. No injection or drainage. NECK: Supple, trachea midline. No JVD. CARDIOVASCULAR: Regular rate and rhythm without murmurs, gallops, or rubs. RESPIRATORY: Breath sounds equal bilaterally. No accessory muscle use. GASTROINTESTINAL: Abdomen soft, non-tender, nondistended. MUSCULOSKELETAL: No cyanosis, or edema. Alert awake and oriented x3, no cranial nerve deficits, no focal neurologic deficits. Results Labs CBC & Chem 7: 04/21/18 04:47 04/20/18 06:10 Assessment and Plan (1) CAD (coronary artery disease): Code(s): I25.10 - Atherosclerotic heart disease of [place] coronary artery without angina pectoris Status: Acute (2) Cardiomyopathy: Code(s): I42.9 - Cardiomyopathy, unspecified Status: Acute (3) LV (left ventricular) mural thrombus: Code(s): I51.3 - Intracardiac thrombosis, not elsewhere classified Status: Acute (4) Tobacco abuse: Code(s): Z72.0 - Tobacco use Status: Acute (5) ACS (acute coronary syndrome): Code(s): I24.9 - Acute ischemic heart disease, unspecified Status: Acute (6) H/O congestive heart failure: Code(s): Z86.79 - Personal history of other diseases of the circulatory system Status: Acute (7) Acute exacerbation of congestive heart failure: Code(s): I50.9 - Heart failure, unspecified Status: Acute (8) Dyspnea on exertion: Code(s): R06.09 - Other forms of dyspnea Status: Acute Plan Mr. Miller is a pleasant 48-year-old male with a history of [place] x2 with stent placement, severe ischemic cardiomyopathy with ejection fraction 25- 30% who presented to the emergency department on 04/19/2018 due to pressure-like chest pain. His last stent was placed in January 2017. He has been off Plavix due to missed appointments. His troponins are 0.12, 0.11, 0.11. BNP was close to 2000. Non-ST elevation myocardial infarction Ischemic cardiomyopathy with ejection fraction 25-30% CAD with history of PCI/stent placement Systolic heart failure, chronic (Compensated) No acute ST changes. Troponins are mildly elevated. Status post cardiac catheterization. Dr. Cervantes recommends EP evaluation as well as future evaluation by [facility] for heart [facility]. Repeat echocardiogram shows ejection fraction less than 20%. AICD is indicated. EP evaluated patient. Patient does not want any device at this point. Patient also cannot undergo any device placement due to LV thrombus and warfarin use. Ideally, patient should be evaluated in the outpatient setting in 3 months with repeat echo. AICD could be considered again during that time. Continue aspirin 81 mg daily and atorvastatin to 80 mg nightly carvedilol 6.25 mg twice daily lisinopril 10 mg p.o. daily spironolactone 25 mg p.o. daily. Currently on IV Lasix. We will change to torsemide 10 mg twice daily. = Discontinue Nitro-bid, add Imdur. LV thrombus Given patient's cardiomyopathy, he would likely need indefinite anticoagulation. Discussed with compliance coordinator who recommended continuing heparin and bridging to warfarin. If home health can be arranged, patient could potentially go home with Lovenox full dose to bridge to warfarin. He will need [facility] appointments so that INR can be monitored. = 04/23. Patient says he is very skittish about needles, does not feel comfortable injecting himself. Nurse to instruct. INR 1.1. Would like to see this at least budge prior to discharge and follow-up with [facility] as outpatient Acute kidney injury Hypokalemia Creatinine 1.2 on admission currently 1.07. Potassium improved to 3.6. Resolved Tobacco abuse Patient is heavily counseled on the importance of quitting tobacco. Patient verbalized understanding. He is aware of the resources available through the state. Patient is also advised to follow-up with [facility] for primary care needs. Full code. Heparin drip, warfarin Progress Note: Quality VTE Deep Vein Thrombosis/Pulmonary Embolism Present on Admission: No _ (1) CAD (coronary artery disease) Qualifiers: Coronary Disease-Associated Artery/Lesion type: [place] vs. transplanted heart: Associated angina: (2) Cardiomyopathy Qualifiers: Cardiomyopathy type: (3) Acute exacerbation of congestive heart failure Qualifiers: Heart failure type:
[2018-04-23] MEDS: Heparin Drip 25,000 UNIT/250 ML BAG IV.CONT PRN (19:36)
[2018-04-24 02:03] LABS: Activated Partial Thrombo Time 41.5 sec (23.4-31.7); INR 1.2 Ratio; Prothrombin Time 12.1 sec (9.8-11.6)
[2018-04-24] MEDS: Isosorbide Mononitrate 30 MG ER 24HR Tablet (Imdur) PO SCH (06:16)
[2018-04-24] MEDS: Lisinopril 10 MG Tablet PO SCH (08:15)
[2018-04-24] MEDS: Spironolactone 25 MG Tablet PO SCH (08:15)
[2018-04-24] MEDS: Carvedilol 6.25 MG Tablet PO SCH ×2 (08:16→20:11)
[2018-04-24] MEDS: amLODIPine 5 MG Tablet PO SCH (08:16)
[2018-04-24] MEDS: Senna/Docusate Sodium 8.6/50 MG Tablet PO SCH ×2 (08:16→20:12)
--- NOTE | 2018-04-24 14:23 | P.PNIM ---
Subjective Interval history: The patient is in bed appears in not acute distress. Has no shortness of breath or chest pain at this time. No palpitations. No lightheadedness. No weakness sensorimotor deficit. Physical Exam Vital signs: Vital Signs 04/23/18 15:00 04/23/18 16:00 04/23/18 16:58 Temperature 99.1 F Pulse Rate 74 67 72 Respiratory Rate 16 Blood Pressure 129/93 H Pulse Oximetry 98 04/23/18 17:00 04/23/18 18:00 04/23/18 19:00 Temperature Pulse Rate 70 68 75 Respiratory Rate Blood Pressure Pulse Oximetry 04/23/18 20:00 04/23/18 21:00 04/23/18 22:00 Temperature 97.7 F Pulse Rate 68 70 72 Respiratory Rate 16 Blood Pressure 137/97 H Pulse Oximetry 96 04/23/18 23:00 04/24/18 00:00 04/24/18 01:00 Temperature 97.6 F Pulse Rate 67 62 60 Respiratory Rate 16 Blood Pressure 147/97 H Pulse Oximetry 97 04/24/18 02:00 04/24/18 03:00 04/24/18 04:00 Temperature Pulse Rate 58 L 60 67 Respiratory Rate Blood Pressure 140/99 H Pulse Oximetry 98 04/24/18 05:00 04/24/18 06:00 04/24/18 07:00 Temperature Pulse Rate 66 63 75 Respiratory Rate Blood Pressure Pulse Oximetry 04/24/18 08:00 04/24/18 09:00 04/24/18 10:00 Temperature 97.7 F Pulse Rate 70 72 70 Respiratory Rate 18 Blood Pressure 123/90 Pulse Oximetry 96 04/24/18 11:00 04/24/18 12:00 04/24/18 13:00 Temperature 98.6 F Pulse Rate 82 72 66 Respiratory Rate 18 Blood Pressure 132/92 H Pulse Oximetry 98 Intake & Output 04/23/18 04/24/18 04/24/18 18:59 06:59 18:59 Intake Total 250 / 250 Balance 250 / 250 Weight 78.9 kg Intake: IV 250 / 250 Heparin/D5W 25,000 U/250 mL 25, 250 / 250 000 unit In 250 ml @ Per Protocol IV.CONT TITRATE PRN Rx #:[id number] Other: Date of Last Bowel Movement 04/23/18 04/23/18 Narrative: GENERAL: Pleasant 48-year-old male, well-nourished well-developed, appears in not acute distress. EYES: No scleral icterus. No injection or drainage. NECK: Supple, trachea midline. No JVD. CARDIOVASCULAR: Regular rate and rhythm without murmurs, gallops, or rubs. RESPIRATORY: Breath sounds equal bilaterally. No accessory muscle use. GASTROINTESTINAL: Abdomen soft, non-tender, nondistended. MUSCULOSKELETAL: No cyanosis, or edema. Alert awake and oriented x3, no cranial nerve deficits, no focal neurologic deficits. Results Labs CBC & Chem 7: 04/21/18 04:47 04/20/18 06:10 Assessment and Plan (1) CAD (coronary artery disease): Code(s): I25.10 - Atherosclerotic heart disease of [place] coronary artery without angina pectoris Status: Acute (2) Cardiomyopathy: Code(s): I42.9 - Cardiomyopathy, unspecified Status: Acute (3) LV (left ventricular) mural thrombus: Code(s): I51.3 - Intracardiac thrombosis, not elsewhere classified Status: Acute (4) Tobacco abuse: Code(s): Z72.0 - Tobacco use Status: Acute (5) ACS (acute coronary syndrome): Code(s): I24.9 - Acute ischemic heart disease, unspecified Status: Acute (6) H/O congestive heart failure: Code(s): Z86.79 - Personal history of other diseases of the circulatory system Status: Acute (7) Acute exacerbation of congestive heart failure: Code(s): I50.9 - Heart failure, unspecified Status: Acute (8) Dyspnea on exertion: Code(s): R06.09 - Other forms of dyspnea Status: Acute Plan Mr. Miller is a pleasant 48-year-old male with a history of [place] x2 with stent placement, severe ischemic cardiomyopathy with ejection fraction 25- 30% who presented to the emergency department on 04/19/2018 due to pressure-like chest pain. His last stent was placed in January 2017. He has been off Plavix due to missed appointments. His troponins are 0.12, 0.11, 0.11. BNP was close to 2000. Non-ST elevation myocardial infarction Ischemic cardiomyopathy with ejection fraction 25-30% CAD with history of PCI/stent placement Systolic heart failure, chronic (Compensated) No acute ST changes. Troponins are mildly elevated. Status post cardiac catheterization. Dr. Cervantes recommends EP evaluation as well as future evaluation by [facility] for heart transplant. Repeat echocardiogram shows ejection fraction less than 20%. AICD is indicated. EP evaluated patient. Patient does not want any device at this point. Patient also cannot undergo any device placement due to LV thrombus and warfarin use. Ideally, patient should be evaluated in the outpatient setting in 3 months with repeat echo. AICD could be considered again during that time. Continue aspirin 81 mg daily and atorvastatin to 80 mg nightly carvedilol 6.25 mg twice daily lisinopril 10 mg p.o. daily spironolactone 25 mg p.o. daily. Currently on IV Lasix. We will change to torsemide 10 mg twice daily. = Discontinue Nitro-bid, add Imdur. LV thrombus Given patient's cardiomyopathy, he would likely need indefinite anticoagulation. Discussed with slitter and rewinder machine operator who recommended continuing heparin and bridging to warfarin. If home health can be arranged, patient could potentially go home with Lovenox full dose to bridge to warfarin. [facility] will need [facility] so that INR can be monitored. = 04/23. Patient says he is very skittish about needles, does not feel comfortable injecting himself. Nurse to instruct. INR 1.1. Would like to see this at least budge prior to discharge and follow-up [facility] as outpatient 04/24 INR subterapeutic give extra dose of 4 mg coumadin. Pharmacy consulted for dosing Acute kidney injury Hypokalemia Creatinine 1.2 on admission currently 1.07. Potassium improved. Monitor lites and replace as needed Resolved Tobacco abuse Patient is heavily counseled on the importance of quitting tobacco. Patient verbalized understanding. He is aware of the resources available through the state. Patient is also advised to follow-up with [facility] for primary care needs. Full code. Heparin drip, warfarin Discharge when INR is therapeutic Progress Note: Quality VTE Deep Vein Thrombosis/Pulmonary Embolism Present on Admission: No _ (1) Acute exacerbation of congestive heart failure Qualifiers: Heart failure type: (2) CAD (coronary artery disease) Qualifiers: Associated angina: Coronary Disease-Associated Artery/Lesion type: [place] vs. transplanted heart: (3) Cardiomyopathy Qualifiers: Cardiomyopathy type:
[2018-04-24] MEDS ORDERED: Warfarin Consult Pharmacy OTHER PRN (15:29)
[2018-04-24] MEDS: Morphine Sulfate Inj 2 MG/ML Vial IV.PUSH PRN (16:15)
[2018-04-24] MEDS: Heparin Drip 25,000 UNIT/250 ML BAG IV.CONT PRN (16:23)
[2018-04-25] MEDS: Morphine Sulfate Inj 2 MG/ML Vial IV.PUSH PRN ×3 (02:37→18:50)
[2018-04-25] MEDS: Melatonin 5 MG Tablet PO PRN (02:37)
[2018-04-25] MEDS: Isosorbide Mononitrate 30 MG ER 24HR Tablet (Imdur) PO SCH (06:01)
[2018-04-25 06:25] LABS: Activated Partial Thrombo Time 66.2 sec (23.4-31.7); INR 1.5 Ratio; Prothrombin Time 15.1 sec (9.8-11.6)
[2018-04-25] MEDS: Lisinopril 10 MG Tablet PO SCH (09:27)
[2018-04-25] MEDS: Carvedilol 6.25 MG Tablet PO SCH ×2 (09:28→20:13)
[2018-04-25] MEDS: Senna/Docusate Sodium 8.6/50 MG Tablet PO SCH ×2 (09:28→20:14)
[2018-04-25] MEDS: Spironolactone 25 MG Tablet PO SCH (09:28)
[2018-04-25] MEDS: amLODIPine 5 MG Tablet PO SCH (09:28)
[2018-04-25] MEDS: Heparin Drip 25,000 UNIT/250 ML BAG IV.CONT PRN (11:07)
--- NOTE | 2018-04-25 13:25 | P.PNIM ---
Subjective Interval history: The patient is in not acute distress no fever chills overnight. No overt bleeding. INR 1.5. Denies chest pain or shortness of breath. No motor or sensory deficit. Physical Exam Vital signs: Vital Signs 04/24/18 14:00 04/24/18 15:00 04/24/18 15:36 Temperature Pulse Rate 66 67 Respiratory Rate Blood Pressure Pulse Oximetry 99 04/24/18 16:00 04/24/18 17:00 04/24/18 18:00 Temperature 98.1 F Pulse Rate 71 60 51 L Respiratory Rate 18 Blood Pressure 143/95 H Pulse Oximetry 98 04/24/18 19:00 04/24/18 20:00 04/24/18 21:00 Temperature 97.8 F Pulse Rate 63 68 59 L Respiratory Rate 18 Blood Pressure 146/91 H Pulse Oximetry 99 04/24/18 22:00 04/24/18 23:00 04/24/18 23:27 Temperature 98.6 F Pulse Rate 64 61 69 Respiratory Rate 18 Blood Pressure 158/98 H Pulse Oximetry 99 04/25/18 00:00 04/25/18 01:00 04/25/18 02:00 Temperature Pulse Rate 58 L 54 L 54 L Respiratory Rate Blood Pressure Pulse Oximetry 04/25/18 03:00 04/25/18 04:00 04/25/18 05:00 Temperature 97.6 F Pulse Rate 54 L 64 62 Respiratory Rate 18 Blood Pressure 126/86 Pulse Oximetry 98 04/25/18 06:00 04/25/18 07:00 04/25/18 08:00 Temperature 98.2 F Pulse Rate 58 L 54 L 54 L Respiratory Rate 16 Blood Pressure 140/90 Pulse Oximetry 99 04/25/18 09:00 04/25/18 10:00 04/25/18 11:00 Temperature Pulse Rate 82 64 67 Respiratory Rate Blood Pressure Pulse Oximetry 04/25/18 12:00 Temperature 98.5 F Pulse Rate 77 Respiratory Rate 16 Blood Pressure 123/76 Pulse Oximetry 98 Intake & Output 04/24/18 04/25/18 04/25/18 18:59 06:59 18:59 Intake Total 1210 / 1210 240 / 240 250 / 250 Output Total 675 / 675 300 / 300 Balance 535 / 535 -60 / -60 250 / 250 Weight 78.7 kg Intake: IV 250 / 250 250 / 250 Heparin/D5W 25,000 U/250 mL 25, 250 / 250 250 / 250 000 unit In 250 ml @ Per Protocol IV.CONT TITRATE PRN Rx #:[id number] Oral 960 / 960 240 / 240 Output: Urine 675 / 675 300 / 300 Other: # Voids 2 Date of Last Bowel Movement 04/23/18 04/24/18 Narrative: GENERAL: Pleasant 48-year-old male, well-nourished well-developed, appears in not acute distress. EYES: No scleral icterus. No injection or drainage. NECK: Supple, trachea midline. No JVD. CARDIOVASCULAR: Regular rate and rhythm without murmurs, gallops, or rubs. RESPIRATORY: Breath sounds equal bilaterally. No accessory muscle use. GASTROINTESTINAL: Abdomen soft, non-tender, nondistended. MUSCULOSKELETAL: No cyanosis, or edema. Alert awake and oriented x3, no cranial nerve deficits, no focal neurologic deficits. Results Labs CBC & Chem 7: 04/21/18 04:47 04/20/18 06:10 Assessment and Plan (1) CAD (coronary artery disease): Code(s): I25.10 - Atherosclerotic heart disease of [place] coronary artery without angina pectoris Status: Acute (2) Cardiomyopathy: Code(s): I42.9 - Cardiomyopathy, unspecified Status: Acute (3) LV (left ventricular) mural thrombus: Code(s): I51.3 - Intracardiac thrombosis, not elsewhere classified Status: Acute (4) Tobacco abuse: Code(s): Z72.0 - Tobacco use Status: Acute (5) ACS (acute coronary syndrome): Code(s): I24.9 - Acute ischemic heart disease, unspecified Status: Acute (6) H/O congestive heart failure: Code(s): Z86.79 - Personal history of other diseases of the circulatory system Status: Acute (7) Acute exacerbation of congestive heart failure: Code(s): I50.9 - Heart failure, unspecified Status: Acute (8) Dyspnea on exertion: Code(s): R06.09 - Other forms of dyspnea Status: Acute Plan Mr. Miller is a pleasant 48-year-old male with a history of [place] x2 with stent placement, severe ischemic cardiomyopathy with ejection fraction 25- 30% who presented to the emergency department on 04/19/2018 due to pressure-like chest pain. His last stent was placed in January 2017. He has been off Plavix due to missed appointments. His troponins are 0.12, 0.11, 0.11. BNP was close to 2000. Non-ST elevation myocardial infarction Ischemic cardiomyopathy with ejection fraction 25-30% CAD with history of PCI/stent placement Systolic heart failure, chronic (Compensated) No acute ST changes. Troponins are mildly elevated. Status post cardiac catheterization. Dr. Cervantes recommends EP evaluation as well as future evaluation by [facility] for heart transplant. Repeat echocardiogram shows ejection fraction less than 20%. AICD is indicated. EP evaluated patient. Patient does not want any device at this point. Patient also cannot undergo any device placement due to LV thrombus and warfarin use. Ideally, patient should be evaluated in the outpatient setting in 3 months with repeat echo. AICD could be considered again during that time. Continue aspirin 81 mg daily and atorvastatin to 80 mg nightly carvedilol 6.25 mg twice daily lisinopril 10 mg p.o. daily spironolactone 25 mg p.o. daily. Currently on IV Lasix. We will change to torsemide 10 mg twice daily. = Discontinue Nitro-bid, add Imdur. LV thrombus Given patient's cardiomyopathy, he would likely need indefinite anticoagulation. Discussed with accounts executive who recommended continuing heparin and bridging to warfarin. If home health can be arranged, patient could potentially go home with Lovenox full dose to bridge to warfarin. He will need [facility] appointments so that INR can be monitored. = 04/23. Patient says he is very skittish about needles, does not feel comfortable injecting himself. Nurse to instruct. Would like to see this at least budge prior to discharge and [facility]up [facility] as outpatient 04/24 INR subterapeutic give extra dose of coumadin. Pharmacy consulted for dosing and following. Acute kidney injury Hypokalemia Creatinine 1.2 on admission currently 1.07. Potassium improved. Monitor lites and replace as needed Resolved Tobacco abuse Patient is heavily counseled on the importance of quitting tobacco. Patient verbalized understanding. He is aware of the resources available through the state. Patient is also advised to follow-up with [facility] for primary care needs. Full code. Heparin drip, warfarin Discharge when INR is therapeutic Progress Note: Quality VTE Deep Vein Thrombosis/Pulmonary Embolism Present on Admission: No _ (1) Acute exacerbation of congestive heart failure Qualifiers: Heart failure type: (2) CAD (coronary artery disease) Qualifiers: Associated angina: Coronary Disease-Associated Artery/Lesion type: [place] vs. transplanted heart: (3) Cardiomyopathy Qualifiers: Cardiomyopathy type:
[2018-04-26] MEDS: Melatonin 5 MG Tablet PO PRN (02:52)
[2018-04-26] MEDS: Morphine Sulfate Inj 2 MG/ML Vial IV.PUSH PRN ×2 (02:52→11:21)
[2018-04-26] MEDS: Heparin Drip 25,000 UNIT/250 ML BAG IV.CONT PRN ×2 (04:08→21:58)
[2018-04-26] MEDS: Isosorbide Mononitrate 30 MG ER 24HR Tablet (Imdur) PO SCH (06:02)
[2018-04-26 06:07] LABS: INR 1.4 Ratio; Prothrombin Time 14.3 sec (9.8-11.6)
[2018-04-26] MEDS: Carvedilol 6.25 MG Tablet PO SCH ×2 (08:29→21:52)
[2018-04-26] MEDS: amLODIPine 5 MG Tablet PO SCH (08:29)
[2018-04-26] MEDS: Spironolactone 25 MG Tablet PO SCH (08:29)
[2018-04-26] MEDS: Lisinopril 10 MG Tablet PO SCH (08:29)
[2018-04-26] MEDS: Senna/Docusate Sodium 8.6/50 MG Tablet PO SCH ×2 (08:30→21:52)
--- NOTE | 2018-04-26 15:58 | P.PNIM ---
Subjective Interval history: Patient denies having chest pain. No motor deficit. No nausea or vomiting. No shortness of breath. INR 1.3 will give extra Coumadin Physical Exam Vital signs: Vital Signs 04/25/18 16:00 04/25/18 17:00 04/25/18 18:00 Temperature 98.3 F Pulse Rate 62 68 71 Respiratory Rate 16 Blood Pressure 116/76 Pulse Oximetry 99 04/25/18 19:00 04/25/18 20:00 04/25/18 21:00 Temperature 98.0 F Pulse Rate 67 67 68 Respiratory Rate 18 Blood Pressure 128/90 Pulse Oximetry 99 04/25/18 22:00 04/25/18 22:45 04/25/18 23:00 Temperature 98.0 F Pulse Rate 73 68 73 Respiratory Rate 16 Blood Pressure 153/90 H Pulse Oximetry 98 04/26/18 00:00 04/26/18 01:00 04/26/18 02:00 Temperature Pulse Rate 58 L 56 L 57 L Respiratory Rate Blood Pressure Pulse Oximetry 04/26/18 03:00 04/26/18 04:00 04/26/18 05:00 Temperature 98.3 F Pulse Rate 56 L 58 L 62 Respiratory Rate 16 Blood Pressure 119/78 Pulse Oximetry 97 04/26/18 06:00 04/26/18 07:00 04/26/18 07:40 Temperature 98.0 F Pulse Rate 62 64 71 Respiratory Rate 17 Blood Pressure 132/88 Pulse Oximetry 99 04/26/18 08:00 04/26/18 09:00 04/26/18 10:00 Temperature Pulse Rate 64 78 72 Respiratory Rate Blood Pressure Pulse Oximetry 95 04/26/18 11:00 04/26/18 11:16 04/26/18 12:00 Temperature 98.7 F Pulse Rate 73 75 70 Respiratory Rate 17 Blood Pressure 120/78 Pulse Oximetry 98 04/26/18 13:00 04/26/18 14:00 04/26/18 15:00 Temperature Pulse Rate 72 56 L 58 L Respiratory Rate Blood Pressure Pulse Oximetry Intake & Output 04/25/18 04/26/18 04/26/18 18:59 06:59 18:59 Intake Total 250 / 250 370 / 370 Output Total 1440 / 1440 1000 / 1000 Balance -1190 / -1190 -630 / -630 Weight 78.5 kg Intake: IV 250 / 250 250 / 250 Heparin/D5W 25,000 U/250 mL 25, 250 / 250 250 / 250 000 unit In 250 ml @ Per Protocol IV.CONT TITRATE PRN Rx #:[id number] Oral 120 / 120 Output: Urine 1440 / 1440 1000 / 1000 Other: # Urine Diapers 7 Date of Last Bowel Movement 04/25/18 04/25/18 # Bowel Movements 1 Narrative: GENERAL: Taty 48-year-old male, well-nourished well-developed, appears in not acute distress. EYES: No scleral icterus. No injection or drainage. NECK: Supple, trachea midline. No JVD. CARDIOVASCULAR: Regular rate and rhythm without murmurs, gallops, or rubs. RESPIRATORY: Breath sounds equal bilaterally. No accessory muscle use. GASTROINTESTINAL: Abdomen soft, non-tender, nondistended. MUSCULOSKELETAL: No cyanosis, or edema. Alert awake and oriented x3, no cranial nerve deficits, no focal neurologic deficits. Results Labs CBC & Chem 7: 04/21/18 04:47 04/20/18 06:10 Assessment and Plan (1) CAD (coronary artery disease): Code(s): I25.10 - Atherosclerotic heart disease of [place] coronary artery without angina pectoris Status: Acute (2) Cardiomyopathy: Code(s): I42.9 - Cardiomyopathy, unspecified Status: Acute (3) LV (left ventricular) mural thrombus: Code(s): I51.3 - Intracardiac thrombosis, not elsewhere classified Status: Acute (4) Tobacco abuse: Code(s): Z72.0 - Tobacco use Status: Acute (5) ACS (acute coronary syndrome): Code(s): I24.9 - Acute ischemic heart disease, unspecified Status: Acute (6) H/O congestive heart failure: Code(s): Z86.79 - Personal history of other diseases of the circulatory system Status: Acute (7) Acute exacerbation of congestive heart failure: Code(s): I50.9 - Heart failure, unspecified Status: Acute (8) Dyspnea on exertion: Code(s): R06.09 - Other forms of dyspnea Status: Acute Plan Mr. Miller is a pleasant 48-year-old male with a history of [place] x2 with stent placement, severe ischemic cardiomyopathy with ejection fraction 25- 30% who presented to the emergency department on 04/19/2018 due to pressure-like chest pain. His last stent was placed in January 2017. He has been off Plavix due to missed appointments. His troponins are 0.12, 0.11, 0.11. BNP was close to 2000. Non-ST elevation myocardial infarction Ischemic cardiomyopathy with ejection fraction 25-30% CAD with history of PCI/stent placement Systolic heart failure, chronic (Compensated) No acute ST changes. Troponins are mildly elevated. Status post cardiac catheterization. Dr. Cervantes recommends EP evaluation as well as future evaluation by [facility] for heart transplant. Repeat echocardiogram shows ejection fraction less than 20%. AICD is indicated. EP evaluated patient. Patient does not want any device at this point. Patient also cannot undergo any device placement due to LV thrombus and warfarin use. Ideally, patient should be evaluated in the outpatient setting in 3 months with repeat echo. AICD could be considered again during that time. Continue aspirin 81 mg daily and atorvastatin to 80 mg nightly carvedilol 6.25 mg twice daily lisinopril 10 mg p.o. daily spironolactone 25 mg p.o. daily. Currently on IV Lasix. We will change to torsemide 10 mg twice daily. = Discontinue Nitro-bid, add Imdur. LV thrombus Given patient's cardiomyopathy, he would likely need indefinite anticoagulation. Discussed with account officer who recommended continuing heparin and bridging to warfarin. If home health can be arranged, patient could potentially go home with Lovenox full dose to bridge to warfarin. [facility] will need [facility] appointments so that INR can be monitored. = 04/23. Patient says he is very skittish about needles, does not feel comfortable injecting himself. Nurse to instruct. Would like to see this at least budge prior to discharge and [facility] as [facility] 04/24 INR subterapeutic give extra dose of coumadin. Pharmacy consulted for dosing and following. 04/26/ INR is 1.3 will give extra coumadin today Acute kidney injury Hypokalemia Creatinine 1.2 on admission currently 1.07. Potassium improved. Monitor lites and replace as needed Resolved Tobacco abuse Patient is heavily counseled on the importance of quitting tobacco. Patient verbalized understanding. He is aware of the resources available through the state. Patient is also advised to follow-up with [facility] for primary care needs. Full code. Heparin drip, warfarin Discharge when INR is therapeutic Progress Note: Quality VTE Deep Vein Thrombosis/Pulmonary Embolism Present on Admission: No _ (1) CAD (coronary artery disease) Qualifiers: Coronary Disease-Associated Artery/Lesion type: [place] vs. transplanted heart: Associated angina: (2) Cardiomyopathy Qualifiers: Cardiomyopathy type: (3) Acute exacerbation of congestive heart failure Qualifiers: Heart failure type:
[2018-04-27] MEDS: Isosorbide Mononitrate 30 MG ER 24HR Tablet (Imdur) PO SCH (06:14)
[2018-04-27 06:31] LABS: INR 1.4 Ratio
[2018-04-27 06:39] LABS: Activated Partial Thrombo Time 96.8 sec (23.4-31.7)
[2018-04-27] MEDS: Spironolactone 25 MG Tablet PO SCH (10:15)
[2018-04-27] MEDS: Lisinopril 10 MG Tablet PO SCH (10:15)
[2018-04-27] MEDS: Senna/Docusate Sodium 8.6/50 MG Tablet PO SCH ×2 (10:15→21:30)
[2018-04-27] MEDS: amLODIPine 5 MG Tablet PO SCH (10:16)
[2018-04-27] MEDS: Carvedilol 6.25 MG Tablet PO SCH ×2 (10:16→21:30)
[2018-04-27] MEDS: Morphine Sulfate Inj 2 MG/ML Vial IV.PUSH PRN (14:44)
--- NOTE | 2018-04-27 17:59 | P.PNIM ---
Physical Exam Vital signs: Vital Signs 04/26/18 18:00 04/26/18 19:00 04/26/18 20:00 Temperature 97.6 F Pulse Rate 66 69 66 Respiratory Rate 18 Blood Pressure 140/87 Pulse Oximetry 99 04/26/18 21:00 04/26/18 22:00 04/26/18 23:00 Temperature Pulse Rate 60 58 L 59 L Respiratory Rate Blood Pressure Pulse Oximetry 04/26/18 23:18 04/27/18 00:00 04/27/18 01:00 Temperature 98.5 F Pulse Rate 63 56 L 58 L Respiratory Rate 18 Blood Pressure 126/87 Pulse Oximetry 98 04/27/18 02:00 04/27/18 03:00 04/27/18 04:00 Temperature 97.6 F Pulse Rate 59 L 59 L 72 Respiratory Rate 18 Blood Pressure 138/89 Pulse Oximetry 98 04/27/18 05:00 04/27/18 06:00 04/27/18 07:00 Temperature Pulse Rate 58 L 58 L 59 L Respiratory Rate Blood Pressure Pulse Oximetry 04/27/18 08:00 04/27/18 09:00 04/27/18 10:00 Temperature 97.6 F Pulse Rate 64 66 73 Respiratory Rate 18 Blood Pressure 115/78 Pulse Oximetry 98 04/27/18 11:00 04/27/18 12:00 04/27/18 13:00 Temperature 99.2 F Pulse Rate 70 100 H 72 Respiratory Rate 20 Blood Pressure 142/94 H Pulse Oximetry 100 04/27/18 14:00 04/27/18 15:00 04/27/18 15:20 Temperature 98.3 F Pulse Rate 74 70 66 Respiratory Rate 18 Blood Pressure 127/77 Pulse Oximetry 98 04/27/18 16:00 04/27/18 17:00 Temperature Pulse Rate 72 74 Respiratory Rate Blood Pressure Pulse Oximetry Intake & Output 04/26/18 04/27/18 04/27/18 18:59 06:59 18:59 Intake Total 640 / 640 470 / 470 880 / 880 Output Total 805 / 805 1050 / 1050 400 / 400 Balance -165 / -165 -580 / -580 480 / 480 Weight 79.7 kg Intake: IV 230 / 230 250 / 250 Heparin/D5W 25,000 U/250 mL 25, 230 / 230 250 / 250 000 unit In 250 ml @ Per Protocol IV.CONT TITRATE PRN Rx #:[id number] Oral 640 / 640 240 / 240 630 / 630 Output: Urine 805 / 805 1050 / 1050 400 / 400 Other: Date of Last Bowel Movement 04/25/18 Narrative: GENERAL: Taty 48-year-old male, well-nourished well-developed, appears in not acute distress. EYES: No scleral icterus. No injection or drainage. NECK: Supple, trachea midline. No JVD. CARDIOVASCULAR: Regular rate and rhythm without murmurs, gallops, or rubs. RESPIRATORY: Breath sounds equal bilaterally. No accessory muscle use. GASTROINTESTINAL: Abdomen soft, non-tender, nondistended. MUSCULOSKELETAL: No cyanosis, or edema. Alert awake and oriented x3, no cranial nerve deficits, no focal neurologic deficits. Results Labs CBC & Chem 7: 04/21/18 04:47 04/20/18 06:10 Assessment and Plan (1) CAD (coronary artery disease): Code(s): I25.10 - Atherosclerotic heart disease of [place] coronary artery without angina pectoris Status: Acute (2) Cardiomyopathy: Code(s): I42.9 - Cardiomyopathy, unspecified Status: Acute (3) LV (left ventricular) mural thrombus: Code(s): I51.3 - Intracardiac thrombosis, not elsewhere classified Status: Acute (4) Tobacco abuse: Code(s): Z72.0 - Tobacco use Status: Acute (5) ACS (acute coronary syndrome): Code(s): I24.9 - Acute ischemic heart disease, unspecified Status: Acute (6) H/O congestive heart failure: Code(s): Z86.79 - Personal history of other diseases of the circulatory system Status: Acute (7) Acute exacerbation of congestive heart failure: Code(s): I50.9 - Heart failure, unspecified Status: Acute (8) Dyspnea on exertion: Code(s): R06.09 - Other forms of dyspnea Status: Acute Plan Mr. Miller is a pleasant 48-year-old male with a history of LA x2 with stent placement, severe ischemic cardiomyopathy with ejection fraction 25- 30% who presented to the emergency department on 04/19/2018 due to pressure-like chest pain. His last stent was placed in January 2017. He has been off Plavix due to missed appointments. His troponins are 0.12, 0.11, 0.11. BNP was close to 2000. Non-ST elevation myocardial infarction Ischemic cardiomyopathy with ejection fraction 25-30% CAD with history of PCI/stent placement Systolic heart failure, chronic (Compensated) No acute ST changes. Troponins are mildly elevated. Status post cardiac catheterization. Dr. Cervantes recommends EP evaluation as well as [facility]. Repeat echocardiogram shows ejection fraction less than 20%. AICD is indicated. EP evaluated patient. Patient does not want any device at this point. Patient also cannot undergo any device placement due to LV thrombus and warfarin use. Ideally, patient should be evaluated in the outpatient setting in 3 months with repeat echo. AICD could be considered again during that time. Continue aspirin 81 mg daily and atorvastatin to 80 mg nightly carvedilol 6.25 mg twice daily lisinopril 10 mg p.o. daily spironolactone 25 mg p.o. daily. Currently on IV Lasix. We will change to torsemide 10 mg twice daily. = Discontinue Nitro-bid, add Imdur. LV thrombus Given patient's cardiomyopathy, he would likely need indefinite anticoagulation. Discussed with outside production inspector who recommended continuing heparin and bridging to warfarin. If home health can be arranged, patient could potentially go home with Lovenox full dose to bridge to warfarin. He will need [facility] appointments so that INR can be monitored. = 04/23. Patient says he is very skittish about needles, does not feel comfortable injecting himself. Nurse to instruct. Would like to see this at least budge prior to discharge and follow-up with [facility] as outpatient 04/24 INR subterapeutic give extra dose of coumadin. Pharmacy consulted for dosing and following. 04/26/ INR is 1.3 will give extra coumadin today 04/27 INR still subterapeutic give extra coumadin. Discussed with the patient and he agrees to try Lovenox to self inject and if comfortable he will go home bridging Lovenox with Coumadin and also to follow-up with [facility] for INR check. Patient is instructed to stop Lovenox once INR is more than 2. Acute kidney injury Hypokalemia Creatinine 1.2 on admission currently 1.07. Potassium improved. Monitor lites and replace as needed Resolved Tobacco abuse Patient is heavily counseled on the importance of quitting tobacco. Patient verbalized understanding. He is aware of the resources available through the state. Patient is also advised to follow-up with [facility] for primary care needs. Full code. Heparin drip, warfarin Discharge when INR is therapeutic Discussed with the patient 04/27 and he agrees to try Lovenox to self inject and if comfortable he will go home bridging Lovenox with Coumadin and also to follow -up with [facility] for INR check. Patient is instructed to stop Lovenox once INR is more than 2. Progress Note: Quality VTE Deep Vein Thrombosis/Pulmonary Embolism Present on Admission: No _ (1) CAD (coronary artery disease) Qualifiers: Coronary Disease-Associated Artery/Lesion type: [place] vs. transplanted heart: Associated angina: (2) Cardiomyopathy Qualifiers: Cardiomyopathy type: (3) Acute exacerbation of congestive heart failure Qualifiers: Heart failure type:
[2018-04-27] MEDS: Enoxaparin Inj 80 MG/0.8 ML Syringe SQ SCH (21:30)
[2018-04-28] MEDS: Morphine Sulfate Inj 2 MG/ML Vial IV.PUSH PRN (00:23)
[2018-04-28] MEDS: Melatonin 5 MG Tablet PO PRN (00:24)
[2018-04-28] MEDS: Isosorbide Mononitrate 30 MG ER 24HR Tablet (Imdur) PO SCH (06:21)
[2018-04-28 06:52] LABS: INR 1.7 Ratio; Prothrombin Time 17.1 sec (9.8-11.6)
[2018-04-28] MEDS: Carvedilol 6.25 MG Tablet PO SCH (08:51)
[2018-04-28] MEDS: Spironolactone 25 MG Tablet PO SCH (08:51)
[2018-04-28] MEDS: Enoxaparin Inj 80 MG/0.8 ML Syringe SQ SCH (08:52)
[2018-04-28] MEDS: Lisinopril 10 MG Tablet PO SCH (08:53)
[2018-04-28] MEDS: amLODIPine 5 MG Tablet PO SCH (08:53)
[2018-04-28] MEDS: Senna/Docusate Sodium 8.6/50 MG Tablet PO SCH (08:54)
--- NOTE | 2018-04-28 11:45 | P.DS ---
DS: Providers Date of admission: 04/18/18 20:16 Primary care physician: No Primary Care Physician Consults: 04/18/18 22:54 Consult to Cardiology Routine Consulting Provider: Rian Cervantes Does the patient have a Lime Spreader who follows them?: No Preferred Turbine Measurements Engineer:: Buckle Frame Shaper Physician Reason for Consultation: NSTEMI CONSULT FOR AM Spoke with:: Added to List. Please call MD in AM Date Notified:: 04/18/18 Time Notified:: 23:25 Comments:: spoke to Dr Cervantes @ [address] [place] [address] Ordering Provider: KONG 04/20/18 08:59 Consult to Cardiology Routine Consulting Provider: Tomas Spence Does the patient have a Lime Spreader who follows them?: No Preferred Turbine Measurements Engineer:: Tomas Spence Reason for Consultation: Discussed with dr. Cervantes. EF less than 20. Liklely needs AICD. Notified:: Office Spoke with:: CARMEN Date Notified:: 04/20/18 Time Notified:: 09:26 Ordering Provider: ALISON Slaughter History from admission: 48-year-old male with a history of ND x2 with stent placement, severe ischemic cardiomyopathy with an EF of 25-30%, hypertension and hyperlipidemia presented to the ED with complaints of chest pain. He states for the last 3 weeks he has had intermittent pressure-like chest pain that radiates to his left shoulder, 7/10 with associated cough and shortness of breath. He states for the last 2 months he has been off his medications which includes Plavix due to a missed appointment. Upon examination he is currently on a nitroglycerin drip and heparin drip and states he is pain-free at this time. He does complain of shortness of breath, orthopnea and cough. He denies any recent illness no fever or chills. DS: Diagnosis Discharge Diagnosis (1) CAD (coronary artery disease): Status: Acute (2) Cardiomyopathy: Status: Acute (3) LV (left ventricular) mural thrombus: Status: Acute (4) Tobacco abuse: Status: Acute (5) ACS (acute coronary syndrome): Status: Acute (6) H/O congestive heart failure: Status: Acute (7) Acute exacerbation of congestive heart failure: Status: Acute (8) Dyspnea on exertion: Status: Acute DS: Summary Mr. Miller is a pleasant 48-year-old male with a history of ND x2 with stent placement, severe ischemic cardiomyopathy with ejection fraction 25- 30% who presented to the emergency department on 04/19/2018 due to pressure-like chest pain. His last stent was placed in January 2017. He has been off Plavix due to missed appointments. His troponins are 0.12, 0.11, 0.11. BNP was close to 2000. Non-ST elevation myocardial infarction Ischemic cardiomyopathy with ejection fraction 25-30% CAD with history of PCI/stent placement Systolic heart failure, chronic (Compensated) No acute ST changes. Troponins are mildly elevated. Status post cardiac catheterization. Dr. Cervantes recommends EP evaluation as well as future evaluation by [facility] for heart transplant. Repeat echocardiogram shows ejection fraction less than 20%. AICD is indicated. EP evaluated patient. Patient does not want any device at this point. Patient also cannot undergo any device placement due to LV thrombus and warfarin use. Ideally, patient should be evaluated in the outpatient setting in 3 months with repeat echo. AICD could be considered again during that time. Continue aspirin 81 mg daily and atorvastatin to 80 mg nightly carvedilol 6.25 mg twice daily lisinopril 10 mg p.o. daily spironolactone 25 mg p.o. daily. Currently on IV Lasix. We will change to torsemide 10 mg twice daily. = Discontinue Nitro-bid, add Imdur. LV thrombus Given patient's cardiomyopathy, he would likely need indefinite anticoagulation. Discussed with lining stamper who recommended continuing heparin and bridging to warfarin. If home health can be arranged, patient could potentially go home with Lovenox full dose to bridge to warfarin. He will need [facility] appointments so that INR can be monitored. = 04/23. Patient says he is very skittish about needles, does not feel comfortable injecting himself. Nurse to instruct. Would like to see this at least budge prior to discharge and follow-up with [facility] as outpatient 04/24 INR subterapeutic give extra dose of coumadin. Pharmacy consulted for dosing and following. 04/26/ INR is 1.3 will give extra coumadin today 04/27 INR still subterapeutic give extra coumadin. Discussed with the patient and he agrees to try Lovenox to self inject and if comfortable he will go home bridging Lovenox with Coumadin and also to follow-up with [facility] clinic for INR check. Patient is instructed to stop Lovenox once INR is more than 2. Acute kidney injury Hypokalemia Creatinine 1.2 on admission currently 1.07. Potassium improved. Monitor lites and replace as needed Resolved Tobacco abuse Patient is heavily counseled on the importance of quitting tobacco. Patient verbalized understanding. He is aware of the resources available through the state. Patient is also advised to follow-up with [facility] for primary care needs. Full code. Heparin drip, warfarin Discharge when INR is therapeutic Discussed with the patient 04/27 and he agrees to try Lovenox to self inject and if comfortable he will go home bridging Lovenox with Coumadin and also to follow -up with [facility] clinic for INR check. Patient is instructed to stop Lovenox once INR is more than 2. Patient is able to self inject lovenox, he is ambulating in the hallways without any problems. He is discharged home in stable condition to follow-up with PCP and consultants as outpatient. Patient to have INR checked at [facility]. Time Spent with Patient Total time spent providing and/or coordinating discharge services: > 30 min Quality: VTE Deep Vein Thrombosis/Pulmonary Embolism Present on Admission: No Exam Narrative Exam Narrative: GENERAL: Pleasant 48-year-old male, well-nourished well- developed, appears in not acute distress. EYES: No scleral icterus. No injection or drainage. NECK: Supple, trachea midline. No JVD. CARDIOVASCULAR: Regular rate and rhythm without murmurs, gallops, or rubs. RESPIRATORY: Breath sounds equal bilaterally. No accessory muscle use. GASTROINTESTINAL: Abdomen soft, non-tender, nondistended. MUSCULOSKELETAL: No cyanosis, or edema. Alert awake and oriented x3, no cranial nerve deficits, no focal neurologic deficits. Results Labs on day of discharge: Labs from last 24 hours 04/28/18 04/27/18 05:14 22:24 PT 17.1 H INR 1.7 APTT 36.5 H D Impressions ITS Impressions Chest X-Ray 04/18/18 18:37 CONCLUSION: Cardiomegaly with minimal interstitial edema pattern. No consolidation or significant effusion. Discharge Plan Discharge Disposition Patient Disposition: Discharge Home Discharge Condition Condition: Stable Discharge Order Discharge Orders: Discharge Order (Routine); Ordered 04/28/18 Ordered By: Ashlee Tolentino Discharge Details Anticipated Discharge Date: 04/27/18 Discharge Comment: DC if able to self inject lovenox Physicians Team Primary Care Provider: Primary Care Malgorzata Urias Attending Provider: Ashlee Tolentino Other Providers: Tomas Spence ; Rian Cervantes Rxs /Orders / Referrals /Forms Prescriptions: New enoxaparin [Lovenox] 80 mg/0.8 mL Syringe 80 mg subcut Q12HR 7 Days Qty: 8 RF: 0 warfarin [Coumadin] 5 mg Tablet 5 mg PO DAILY@1600 Qty: 30 RF: 0 amlodipine [Norvasc] 5 mg Tablet 5 mg PO DAILY Qty: 30 RF: 0 atorvastatin 80 mg Tablet 80 mg PO HS Qty: 30 RF: 0 carvedilol [Coreg] 6.25 mg Tablet 6.25 mg PO BID Qty: 60 RF: 0 isosorbide mononitrate 30 mg Tablet Extended Release 24 Hr 30 mg PO DAILY@0700 Qty: 30 RF: 0 lisinopril 10 mg Tablet 20 mg PO DAILY Qty: 30 RF: 0 spironolactone [Aldactone] 25 mg Tablet 25 mg PO DAILY Qty: 30 RF: 0 aspirin 81 mg Tablet,Delayed Release (Dr/Ec) 81 mg PO DAILY Qty: 30 RF: 0 Continue potassium chloride 10 mEq Capsule, Extended Release PO DAILY RF: 0 nitroglycerin 0.4 mg Tablet, Sublingual 0.4 mg Sublingual DIRECTED PRN (Reason: Chest Pain) Qty: 30 RF: 0 Discontinued furosemide [Lasix] 20 mg Tablet PO DAILY RF: 0 carvedilol 3.125 mg Tablet PO BID RF: 0 lisinopril 10 mg PO DAILY RF: 0 clonidine HCl 0.1 mg Tablet 0.1 mg PO BID RF: 0 atorvastatin 10 mg Tablet 20 mg PO DAILY RF: 0 clopidogrel 75 mg Tablet 75 mg PO DAILY RF: 0 Referrals: Rian Cervantes MD [Physician] - See Instructions (Please call Dr. Cervantes's office at [phone] and make a hospital follow up appointment within one week. ) Primary Care Malgorzata Urias [Primary Care Provider] - See Instructions (Please call [facility] at [phone] for a hospital follow up appt within one week. ) Discharge Instructions Patient Printed Instructions: Isosorbide Dinitrate (By mouth), Spironolactone ( By mouth), Lisinopril (By mouth), Warfarin (By mouth), Aspirin (By mouth), Amlodipine (By mouth), Enoxaparin (By injection), Atorvastatin (By mouth), Carvedilol (By mouth), Angina (DC), Acute Wound Care (DC), Heart Catheterization (DC) Status ED Status: Left Department Discharge Information Discharge Date/Time: 04/28/18 14:05
== END 2018-04-28 14:05 | disposition home or self-care (01) | DRG 280 ==
LOC: PHED 17:59 → PHEDA 20:16 → HCPC 23:09 → HCIS 04-19 09:51
PROVIDERS: ADMIT Hospitalist; ATTEND Hospitalist
DX: R06.09 Other forms of dyspnea; I21.4 Non-ST elevation (NSTEMI) myocardial infarction; I25.110 Atherosclerotic heart disease of native coronary artery with unstable angina pectoris; Z87.442 Personal history of urinary calculi; Y83.1 Surgical operation with implant of artificial internal device as the cause of abnormal reaction of the patient, or of later complication, without mention of misadventure at the time of the procedure; E78.5 Hyperlipidemia, unspecified; E80.7 Disorder of bilirubin metabolism, unspecified; F17.210 Nicotine dependence, cigarettes, uncomplicated; I25.5 Ischemic cardiomyopathy; D64.9 Anemia, unspecified; N17.9 Acute kidney failure, unspecified; I25.2 Old myocardial infarction; E87.6 Hypokalemia; Z95.5 Presence of coronary angioplasty implant and graft; I11.0 Hypertensive heart disease with heart failure; Z79.02 Long term (current) use of antithrombotics/antiplatelets; I50.23 Acute on chronic systolic (congestive) heart failure; D72.829 Elevated white blood cell count, unspecified; T82.855A Stenosis of coronary artery stent, initial encounter
CPT/HCPCS: 71020; 71046; 80048; 80053; 80061; 82550; 82552; 83520; 83735; 83880; 84484; 85002; 85025; 85027; 85610; 85730; 90774; 90775; 93005; 93308; 93454; 96374; 96375; 97161; 99152; 99291; C1769; C1893; C8952; J1644; J1650; J1940; J2250; J2270; J2405; J3010; J7030; Q0163; Q9967